=== PATIENT | male | born 1965 | race African-American/Black ===

== ENCOUNTER → 2022-01-02 09:41 | Outpatient (BNVA) | payer MEDICARE, MEDICAID, SELFPAY | PROVIDERS: PCP Internal Medicine; Visit Provider Nurse Practitioner Family | DX: G47.33 Obstructive sleep apnea (adult) (pediatric) (principal); F09 Unspecified mental disorder due to known physiological condition | CPT/HCPCS: Q3014 ==

== ENCOUNTER → 2022-07-06 13:35 | Outpatient (BNVA) | payer MEDICARE, MEDICAID, SELFPAY | PROVIDERS: PCP Internal Medicine; Visit Provider Nurse Practitioner Family | DX: G47.33 Obstructive sleep apnea (adult) (pediatric) (principal); E66.01 Morbid (severe) obesity due to excess calories; Z68.42 Body mass index [BMI] 45.0-49.9, adult | CPT/HCPCS: 99212 ==

== ENCOUNTER → 2023-04-06 14:00 | Outpatient (BNVA) | payer MEDICARE, MEDICAID, SELFPAY | PROVIDERS: PCP Internal Medicine; Visit Provider Nurse Practitioner Family | DX: G47.33 Obstructive sleep apnea (adult) (pediatric) (principal); R51.9 Headache, unspecified | CPT/HCPCS: 99212 ==

== ENCOUNTER 2023-04-22 19:00 | Outpatient (REF) | payer MEDICARE, MEDICAID, SELFPAY | END 2023-04-22 19:01 | disposition home or self-care (01) | LOC: HO.MRI 19:00 | PROVIDERS: PCP Internal Medicine; Visit Provider Nurse Practitioner Family | DX: Z13.89 Encounter for screening for other disorder (principal) ==

== ENCOUNTER 2023-07-19 14:07 | Outpatient (AMB) | payer MEDICARE, MEDICAID, SELFPAY ==
--- NOTE | 2023-07-19 14:08 | A.OFFVIS_ITS ---
Intake Intake Visit Reasons: f/u for MANUELITO Intake Note: Patient presents for follow up. I need to talk to her about an MRI I had that I couldn't proceed due to a panic attack and anxiety I I had, the lady stated she only took one picture Allergies ibuprofen Allergy (Verified 07/19/23 14:09) Hives ketorolac [From Toradol] Allergy (Verified 07/19/23 14:09) Hives Penicillins Allergy (Verified 07/19/23 14:09) Hives tramadol Allergy (Verified 07/19/23 14:09) Hives Medication List - Last Reconciled 07/19/23 by Danisha Abarca, ANTIONETTE amlodipine 5 mg PO DAILY aspirin 81 mg PO DAILY atorvastatin 20 mg PO DAILY fluoride (sodium) 1.1% PO hydrochlorothiazide 25 mg PO DAILY hydroxyzine HCl 25 mg PO TID PRN losartan 100 mg PO DAILY mupirocin 2% topical ofloxacin 0.3% 0 drps otic (ears) rimegepant (Nurtec ODT) 75 mg orally daily prn PRN; 30 days HPI HPI Comments History of Present Illness Details 58-yr-old male presents for f/u televisi t, as he is recovering from Covid-19. Pt endorses the following interval medical history changes: He was diagnosed w/ COVID-19 approx 10 days ago- mostly URI/sinus s/s. He has not had any recent headaches. He did tried to have the brain MRI- but had a panic attack so exam was aborted- very limited results although no large masses were noted. The Ubrelvy- denied, then ordered Nurtec ODT 75mg, but he did not try- he was worries about trying a newer medication. He plans to try to start losing weight- he plans to increase physical activity, reducing portion sizes, limiting carbohydrates. He is compliant w/ his CPAP device- finds he cannot sleep without it, especially since we decreased the PAP pressure form 16 to 15 cmH2O. His PAP compliance report shows CPAP 15 cmH2O, 100% overall usage and usage > 4 hrs, average use > 7 hrs, residual AHI 3.3/hr. PFSH Medical History High blood pressure High cholesterol Surgical History No history of previous surgery Family History Mother Diabetes Father Diabetes Maternal Grandmother Diabetes Brother Heart disease Social History Alcohol intake: current Alcohol intake frequency: a few times a month Patient Tobacco Use Status: Former Tobacco user Quit Date: 5 years Current occupational status: disabled Review of Systems Const All systems reviewed & are unremarkable except as noted in HPI and below Physical Exam Const General: cooperative and no acute distress Orientation/consciousness: patient oriented x3 Resp Effort & Inspection: normal respiratory effort and able to speak in complete sentences Neuro General: patient oriented x3 Cognition (Neuro): normal cognition Psych Appearance: grossly normal Mental Status: mental status grossly normal Speech and movement: Normal speech and movement present Affect: normal affect Attitude: cooperative Assessment & Plan Assessment & Plan (1) Obstructive sleep apnea: Comment: severe Code(s): G47.33 - Obstructive sleep apnea (adult) (pediatric) (2) Morbid obesity with body mass index (BMI) of 45.0 to 49.9 in adult: Code(s): E66.01 - Morbid (severe) obesity due to excess calories; Z68.42 - Body mass index [BMI] 45.0-49.9, adult (3) New onset headache: Comment: w/ migraine features Code(s): R51.9 - Headache, unspecified Plan Continue CPAP 15 cmH2O, as pt is experiencing good clinical effect from use. Use CPAP nightly > 4 hrs for best clinical effect. Concur w/ increasing physical activity and trying to eat healthier. For new onset headache- Improved. Incomplete brain MRI- reconsider repeating if headaches worsen. May hold Nurtec. May use Tylenol prn. Contraindications: NSAIDs- d/t allergy, Triptans d/t HTN and HLD. f/u in 6 months or sooner prn. Telehealth Telehealth Location of provider rendering services: practice address Location of patient: address on file Patient Identification confirmed using: Name, : Yes Telehealth method: video Patient verbally consented to treatment: Yes Patient verbally consented to billing insurance company: Yes Patient informed of any privacy concerns related to visit: Yes Minutes spent on Phone/Video with Pt.: 13 Coding Level of Care Code Tele Est Pt Level 4 (80988) Diagnoses Obstructive sleep apnea G47.33 Morbid obesity with body mass index (BMI) of 45.0 to 49.9 in adult E66.01; Z68.42 New onset headache R51.9
== END 2023-07-19 15:10 | disposition home or self-care (01) ==
LOC: HO.HSMS 14:07
PROVIDERS: PCP Internal Medicine; Visit Provider Nurse Practitioner Family
DX: G47.33 Obstructive sleep apnea (adult) (pediatric) (principal); E66.01 Morbid (severe) obesity due to excess calories; Z68.42 Body mass index [BMI] 45.0-49.9, adult; R51.9 Headache, unspecified
CPT/HCPCS: 99213

== ENCOUNTER → 2023-07-19 14:07 | Outpatient (BNVA) | payer MEDICARE, MEDICAID, SELFPAY | PROVIDERS: PCP Internal Medicine; Visit Provider Nurse Practitioner Family | DX: R51.9 Headache, unspecified (principal); E66.01 Morbid (severe) obesity due to excess calories; Z68.42 Body mass index [BMI] 45.0-49.9, adult ==

== ENCOUNTER 2024-01-17 11:48 | Outpatient (AMB) | payer MEDICARE, MEDICAID, SELFPAY ==
--- NOTE | 2024-01-17 11:49 | A.OFFVIS_ITS ---
Intake Intake Visit Reasons: 6m f/u MANUELITO- CONF Allergies ibuprofen Allergy (Verified 07/19/23 14:09) Hives ketorolac [From Toradol] Allergy (Verified 07/19/23 14:09) Hives Penicillins Allergy (Verified 07/19/23 14:09) Hives tramadol Allergy (Verified 07/19/23 14:09) Hives HPI HPI Comments History of Present Illness Details 59-yr-old male presents for f/u televide o [facility]. Pt denies any significant interval medical changes. Cardiology recently started him on Hydralazine for HTN tx. He has not been having any right retro-orbital headaches in a while . He thinks this was due to using increased CPAP pressure. He has been noticing STM lapses- word/name recall. He has stopped smoking- tobacco/marijuana use years ago. But after stopping s moking, he started eating more/gaining weight. His last HgA1C 7.4%. He plans to start Metformin. He started with tingling in his hand then all of a sudden this changed to his feet. Initially it was right foot burning/tingling, and over time it became kelly feet- but still more right sided than left. Sometimes the left foot can feel clean . Laying on his right side w/ head in certain position and sitting in certain chairs can trigger the burning in his feet. He had a L3-L4 laminectomy in 2000- was told he had other disc bulges. Has had Right sided sciatica, which improved post laminectomy but the right leg has since been more numb. He will be seeing Dr Espino.? He is doing well with CPAP, feels like he cannot sleep without. Compliance Report, 12/18/2023 - 01/16/2024 Usage days 30/30 days (100%) >= 4 hours Average usage (days used) 6 hours 50 minutes AirSense 11 AutoSet Serial number [id number] Mode CPAP Set pressure 15 cmH2O EPR Fulltime EPR level 3 Therapy Leaks Residual AHI: 2.3 PFSH Medical History High blood pressure High cholesterol Surgical History No history of previous surgery Family History Mother Diabetes Father Diabetes Maternal Grandmother Diabetes Brother Heart disease Social History Alcohol intake: current Alcohol intake frequency: a few times a month Patient Tobacco Use Status: Former Tobacco user Quit Date: 5 years Current occupational status: disabled Physical Exam Const General: cooperative and no acute distress Orientation/consciousness: patient oriented x3 Resp Effort & Inspection: normal respiratory effort and able to speak in complete sentences Neuro General: patient oriented x3 Cognition (Neuro): normal cognition Psych Appearance: grossly normal Mental Status: mental status grossly normal Speech and movement: Normal speech and movement present Affect: normal affect Attitude: cooperative Assessment & Plan Assessment & Plan (1) Obstructive sleep apnea: Comment: severe Code(s): G47.33 - Obstructive sleep apnea (adult) (pediatric) (2) New onset headache: Comment: w/ migraine features Code(s): R51.9 - Headache, unspecified (3) Morbid obesity with body mass index (BMI) of 45.0 to 49.9 in adult: Code(s): E66.01 - Morbid (severe) obesity due to excess calories; Z68.42 - Body mass index [BMI] 45.0-49.9, adult (4) Paresthesia of both lower extremities: Comment: Right > Left Code(s): R20.2 - Paresthesia of skin (5) H/O laminectomy: Code(s): Z98.890 - Other specified postprocedural states Plan For MANUELITO: Continue CPAP 15 cmH2O, as pt is experiencing good clinical effect from use. Use CPAP nightly > 4 hrs for best clinical effect. Concur w/ increasing physical activity and trying to eat healthier. ? For headache- Improved. May hold Nurtec. May use Tylenol prn. Previous brain MRI- incomplete d/t anxiety- reconsider repeating if headaches worsen. Contraindications: NSAIDs- d/t allergy, Triptans d/t HTN and HLD. For cognition: Increase physical activity. For BLE, R > L: Consult w/ Dr Espino as scheduled ? f/u in 6 months or sooner prn. Telehealth Telehealth Location of provider rendering services: practice address Location of patient: address on file Patient Identification confirmed using: Name, : Yes Telehealth method: video Patient verbally consented to treatment: Yes Patient verbally consented to billing insurance company: Yes Patient informed of any privacy concerns related to visit: Yes Minutes spent on Phone/Video with Pt.: 25 Coding Level of Care Code Tele Est Pt Level 4 (99039) Diagnoses Obstructive sleep apnea G47.33 New onset headache R51.9 Morbid obesity with body mass index (BMI) of 45.0 to 49.9 in adult E66.01; Z68.42 Paresthesia of both lower extremities R20.2 H/O laminectomy Z98.890
== END 2024-01-17 13:48 | disposition home or self-care (01) ==
LOC: HO.HSMS 11:48
PROVIDERS: PCP Internal Medicine; Visit Provider Nurse Practitioner Family
DX: G47.33 Obstructive sleep apnea (adult) (pediatric) (principal); R51.9 Headache, unspecified; E66.01 Morbid (severe) obesity due to excess calories; Z68.42 Body mass index [BMI] 45.0-49.9, adult; R20.2 Paresthesia of skin; Z98.890 Other specified postprocedural states
CPT/HCPCS: 99214

== ENCOUNTER → 2024-01-17 11:48 | Outpatient (BNVA) | payer MEDICARE, MEDICAID, SELFPAY | PROVIDERS: PCP Internal Medicine; Visit Provider Nurse Practitioner Family | DX: R51.9 Headache, unspecified (principal); E66.01 Morbid (severe) obesity due to excess calories; Z68.42 Body mass index [BMI] 45.0-49.9, adult; G47.33 Obstructive sleep apnea (adult) (pediatric) ==

== ENCOUNTER 2024-07-19 10:02 | Outpatient (AMB) | payer MEDICARE, MEDICAID, SELFPAY ==
--- NOTE | 2024-07-18 07:57 | MHC.OFFVIS ---
Vital Signs 07/19/24 10:24 Height 6 ft 2 in Weight 372 lb BMI 47.8 Intake Visit Reasons: 6 mnts f/u appt Intake Note: Patient presents for 6 month follow up. Allergies ibuprofen Allergy (Verified 07/19/24 10:24) Hives ketorolac [From Toradol] Allergy (Verified 07/19/24 10:24) Hives Penicillins Allergy (Verified 07/19/24 10:24) Hives tramadol Allergy (Verified 07/19/24 10:24) Hives HPI Comments Details: 59-yr-old male presents for f/u visit. Pt denies any significant interval medical changes. Pt reports that he did see neurology for BLE paresthesias- was told this is r/t diabetic neuropathy. He thinks it may be r/t his sciatica as well. Has been advised him to start metformin- he states he is thinking about it. He has strong family h/o diabetes w/ complications. He is considering seeing weight management. He is using his CPAP nightly with good effect. He states he cannot sleep w/o his machine. Sometimes the mask gets loose if his skin is oily. Does clean his machine/supplies. He is noticing a blue light flashing on his machine- Resmed Airview checked and shows that the machine is working well. He is curious about Inspire tx for MANUELITO. He has not had any headaches. 06/19/2024 - 07/18/2024 [place] [id number] Email: [email or web address] Compliance Report Usage 06/19/2024 - 07/18/2024 Usage days 30/30 days (100%) >= 4 hours 30 days (100%) < 4 hours 0 days (0%) Usage hours 203 hours 12 minutes Average usage (total days) 6 hours 46 minutes Average usage (days used) 6 hours 46 minutes Median usage (days used) 6 hours 56 minutes Total used hours (value since last reset - 07/18/2024) 4,176 hours AirSense 11 AutoSet Serial number [id number] Mode CPAP Set pressure 15 cmH2O EPR Fulltime EPR level 3 Therapy Leaks - L/min Median: 6.7 95th percentile: 30.7 Maximum: 58.0 Events per hour AI: 2.3 HI: 0.6 AHI: 2.9 PFSH Medical History (Updated 07/19/24 @ 13:13 by ANTIONETTE Spann) Diabetes High blood pressure High cholesterol Surgical History No history of previous surgery Family History Mother Diabetes Father Diabetes Maternal Grandmother Diabetes Brother Heart disease Social History Alcohol intake: current Alcohol intake frequency: a few times a month Patient Tobacco Use Status: Former Tobacco user Current occupational status: disabled Physical Exam Vital Signs: BMI result Body Mass Index 47.8 Const General: cooperative and no acute distress Orientation/consciousness: patient oriented x3 Resp Effort & Inspection: normal respiratory effort and able to speak in complete sentences Neuro General: patient oriented x3 Cranial nerves: Yes CN's II-XII intact bilaterally Cognition (Neuro): normal cognition Psych Appearance: grossly normal Mental Status: mental status grossly normal Speech and movement: Normal speech and movement present Affect: normal affect Attitude: cooperative Assessment & Plan Assessment & Plan (1) Obstructive sleep apnea: Comment: severe Code(s): G47.33 - Obstructive sleep apnea (adult) (pediatric) Category: Medical (2) Morbid obesity with body mass index (BMI) of 45.0 to 49.9 in adult: Code(s): E66.01 - Morbid (severe) obesity due to excess calories; Z68.42 - Body mass index [BMI] 45.0-49.9, adult Category: Medical (3) New onset headache: Comment: w/ migraine features Code(s): R51.9 - Headache, unspecified Category: Medical Plan For MANUELIOT: Continue CPAP 15 cmH2O, as pt is experiencing good clinical effect from use. Use CPAP nightly > 4 hrs for best clinical effect. Pt would not be a candidate for Inspire as his BMI is > 45. Concur w/ increasing physical activit, trying to eat healthier, and wt management referral. Encouraged pt to try Metformin as ordered by PCP. ? For headache- Improved. May hold Nurtec. May use Tzylenol prn. Previous brain MRI- incomplete d/t anxiety- reconsider repeating if headaches worsen. Contraindications: NSAIDs- d/t allergy, Triptans d/t HTN and HLD. ? For cognition: Increase physical activity. ? For BLE, R > L paresthesias: f/u w/ Dr Espino as scheduled ? f/u in 6 months or sooner prn. Coding Level of Care Code Est Pt Level 4 (03124) Diagnoses Obstructive sleep apnea G47.33 Morbid obesity with body mass index (BMI) of 45.0 to 49.9 in adult E66.01; Z68.42 New onset headache R51.9
[2024-07-19 10:24] VITALS: BMI 47.8
== END 2024-07-19 11:17 | disposition home or self-care (01) ==
PROVIDERS: PCP Internal Medicine; Visit Provider Nurse Practitioner Family
DX: G47.33 Obstructive sleep apnea (adult) (pediatric) (principal); E66.01 Morbid (severe) obesity due to excess calories; Z68.42 Body mass index [BMI] 45.0-49.9, adult; R51.9 Headache, unspecified
CPT/HCPCS: 99214

== ENCOUNTER → 2024-07-19 10:02 | Outpatient (BNVA) | payer MEDICARE, MEDICAID, SELFPAY | PROVIDERS: PCP Internal Medicine; Visit Provider Nurse Practitioner Family | DX: G47.33 Obstructive sleep apnea (adult) (pediatric) (principal); R51.9 Headache, unspecified; E66.01 Morbid (severe) obesity due to excess calories; Z68.42 Body mass index [BMI] 45.0-49.9, adult | CPT/HCPCS: 99212 ==

== ENCOUNTER 2024-12-08 08:29 | Outpatient (AMB) | payer OTHER, MEDICARE, SELFPAY ==
--- NOTE | 2024-12-08 08:30 | MHC.OFFVIS ---
Intake Visit Reasons: Follow up Intake Note: Patient presents for follow up Allergies ibuprofen Allergy (Verified 12/08/24 08:30) Hives ketorolac [From Toradol] Allergy (Verified 12/08/24 08:30) Hives Penicillins Allergy (Verified 12/08/24 08:30) Hives tramadol Allergy (Verified 12/08/24 08:30) Hives HPI Comments Details: 59-yr-old male presents for f/u televideo visit for obstructive sleep apnea Pt states he started on Trulicity, and has lost 8 lb. He continues to use his CPAP nightly with overall good effect. However, more recently his water reservoir is drying out during the night which is causing him to not breathe well and thus wakes him up He has tried adjusting his CPAP humidification settings for instance he turned off heated tubing, but this resulted in significant the water condensation inside the to which was intolerable. He is wondering if there are any devices that can replenish the water reservoir throughout the night. On review of his PAP compliance data, he has residual AHI has increased slightly from 2.9/hour to 6.4/hour. He has not had any headaches. 06/19/2024 - 07/18/2024 [place] [id number] Email: [email or web address] Compliance Report Usage 11/08/2024 - 12/07/2024 Usage days 30/30 days (100%) >= 4 hours 30 days (100%) < 4 hours 0 days (0%) Average usage (days used) 7 hours 10 minutes AirSense 11 AutoSet Serial number [id number] Mode CPAP Set pressure 15 cmH2O EPR Fulltime EPR level 3 Therapy: Leaks - L/min Median: 4.0 95th percentile: 34.8 Maximum: 61.5 Events per hour AI: 4.6 HI: 1.8 AHI: 6.4 PFSH Medical History Diabetes High blood pressure High cholesterol Surgical History No history of previous surgery Family History Mother Diabetes Father Diabetes Maternal Grandmother Diabetes Brother Heart disease Social History Alcohol intake: current Alcohol intake frequency: a few times a month Patient Tobacco Use Status: Former Tobacco user Current occupational status: disabled Physical Exam Const General: cooperative and no acute distress Orientation/consciousness: patient oriented x3 Resp Effort & Inspection: normal respiratory effort and able to speak in complete sentences Neuro General: patient oriented x3 Cognition (Neuro): normal cognition Psych Appearance: grossly normal Mental Status: mental status grossly normal Speech and movement: Normal speech and movement present Affect: normal affect Attitude: cooperative Telehealth Telehealth Telehealth Platform: [employer]Peerient Location of provider rendering services: practice address Location of patient: address on file Patient Identification confirmed using: Name, : Yes Telehealth method: video Patient verbally consented to treatment: Yes Patient verbally consented to billing insurance company: Yes Patient informed of any privacy concerns related to visit: Yes Minutes spent on Phone/Video with Pt.: 25 Assessment & Plan Assessment & Plan (1) Obstructive sleep apnea: Comment: severe Code(s): G47.33 - Obstructive sleep apnea (adult) (pediatric) Category: Medical (2) Morbid obesity with body mass index (BMI) of 45.0 to 49.9 in adult: Code(s): E66.01 - Morbid (severe) obesity due to excess calories; Z68.42 - Body mass index [BMI] 45.0-49.9, adult Category: Medical (3) New onset headache: Comment: w/ migraine features- improved Code(s): R51.9 - Headache, unspecified Category: Medical Plan For MANUELITO: Continue CPAP 15 cmH2O w/ EPR 3, as pt is experiencing overall good clinical effect from use. Use CPAP nightly > 4 hrs for best clinical effect. Adjusted CPAP humidification settings from auto to manual with humidifier level 4 and tube temperature 66 degrees- in hopes this prevents water reservoir from drying out, which patient is not tolerating. Will request a water chamber refilling system be added to patient's current CPAP device to minimize risk for water reservoir drying out which is negatively affecting patient's sleep quality and residual AHI: CSpring MK3 Automatic CPAP Water Chamber Refilling System For headache- Improved. May hold Nurtec. May use Tylenol prn. Previous brain MRI- incomplete d/t anxiety- reconsider repeating if headaches worsen. Contraindications: NSAIDs- d/t allergy, Triptans d/t HTN and HLD. ? For cognition: Continue to optimize cardiovascular risk factors, such as optimizing his diabetes control, diet, and physical activity. ? For BLE, R > L paresthesias: f/u w/ Dr Espino as scheduled ? f/u in 6 months or sooner prn. Coding Level of Care Code Tele Est Pt Level 4 (88160) Diagnoses Obstructive sleep apnea G47.33 Morbid obesity with body mass index (BMI) of 45.0 to 49.9 in adult E66.01; Z68.42 New onset headache R51.9
--- OUTSIDE RECORDS SUMMARY | 2024-12-08 08:37 | XMS_ITS | Encounter Summary ---
Author Organization [facility] Address [address] [place] [address] Care Team Providers Care Clinical Laboratory Assistant Name Role Phone Juan Rogers MD Primary Care Provider [phone] Reason for Referral * Consultation (Routine) - Authorized Specialty Diagnoses / Procedures Referred By Contac t Referred To Contact Gastroenterology Diagnoses Constipation, unspecified constipation type Juan Rogers MD [address] [place] [id number] [facility] Gastroenterology [address] [address] Referral ID Status Reason Start Date Expiration Date Visits Requested Visits Authorized [id number] Authorized Specialty Services Required 4 10/24/2025 1 1 Reason for Visit * Reason Onset Date Comments constipation 10/10/2024 Encounter Details Date Type Department Care Team ([facility] st Contact Info) Description 10/10/2024 Telephone Adult Medicine [facility] [address] [place] [phone] Sandra Patel, PharmD [address] [place], [place] constipation Social History Tobacco Use Types Packs/Day Years Used Date Smoking Tobacco: Former Cigarettes Q uit: 03/18/2020 Smokeless Tobacco: Never Alcohol Use Standard Drinks/Week Comments Yes 0 (1 standard drink = 0.6 oz pur e alcohol) Sex and Gender Information Value Date Recorded Sex Assigned at Not on file Gender Identity Not on file Sexual Orientation Not on file Job Start Date Occupation Industry Not on file Not on file Not on file documented as of this encounter Ordered Prescriptions Prescription Sig Dispensed Refills Start Date End Da te amLODIPine (NORVASC) 5 mg tablet Take 1 tablet (5 mg total) by mouth 1 (one) time each day. at bedtime. 30 tablet 1 10/24/2024 documented in this encounter Progress Notes * Sena Clayton MA - 10/24/2024 3:12 PM EST Pt notified * Juan Rogers MD - 10/24/2024 3:04 PM EST Referral to GI placed * Lisbeth Reyez LPN - 10/24/2024 1:44 PM EST Spoke with pt he states he is taking his pericolace 2x daily but it's not working. Pt states he bought the Citrate of Mag and had a blow out on Wednesday. Pt states he didn't take his aby colace for the last 2 days d/t the blow out and now he is constipated again and wants something stronger. Advised him to use miralax but he refused and states I don't understand. Advised pt to take pericolace daily even if he had a BM, but he states he needs something stronger prescribed for him. Please advise Thank you * Sandra Patel PharmD - 10/24/2024 9:27 AM EST Hi Triage and Dr. Rogers, Patient is still complaining of constipation. Please advise. Thank you, Sandra * Sandra Patel PharmD - 10/10/2024 2:[address] Rogers, Patient is still complaining of constipation. He only had 1 good bowel movement since he saw you which was 2 days ago. He is taking the senna-docusate as prescribed. Would you like him to increase that? If so he would need a new script. Thanks Sandra documented in this encounter Plan of Treatment Upcoming Encounters Date Type Department Care Team (Late st Contact Info) Description 12/12/2024 2:00 PM EST Medication Management Adult Medicine [facility] [address] [place] [phone] Sandra Patel PharmD [address] [place] [address] 12/19/2024 1:20 PM EST Consult Gastroenterology - [place] [address] [facility] [address] [phone] Deisy Haas NP [address] [phone] Scheduled Referrals Name Type Priority Associated Diagnoses Order Schedule Ambulatory referral to Gastroenterology Outpatient Referral Routine Constipation, unspecified constipation type 1 Occurrences starting 10/24/2024 until 10/24/2025 documented as of this encounter Visit Diagnoses Diagnosis Constipation, unspecified constipation type- Primary documented in this encounter Discontinued Medications Medication Sig Discontinue Reason Start Date End Da te amLODIPine (NORVASC) 5 mg tablet Take 1 Tablet by mouth at bedtime. Reorder 03/08/2024 10/24/2024 documented as of this encounter Care Teams Clinical Laboratory Assistant Relationship Specialty Start Date End Date Juan Rogers MD [address] [place] [id number] PCP - General Internal Medicine 09/12/24 documented as of this encounter
--- OUTSIDE RECORDS SUMMARY | 2024-12-08 08:37 | XMS_ITS | Data Portability ---
Author Organization [place] - [facility], Allergy Address [address] [place] [id number] Assessment Encounter Date Assessment Date Assessment LastModified by Organization Details LastModified Time 06/13/2024 06/13/2024 59-year-old male presents for evaluation of tinnitus. Otologic exam reveals cerumen impaction bilaterally which was cleared without difficulty. TMs normal to inspection. Audiometric testing was obtained today. Results show normal hearing and tympanometry bilaterally. Follow-up in 6 months for cerumen removal. [email or web address] Not available 06/13/2024 12:49:33 Plan of Treatment Reminders Order Date Submit Date Provider Last Modified By Organization Details Last Modified Time Details Appointments Establish ed 15 2024 01:30P M SERINA GRAYSON PA-C Not available Not available Not available Lab None recorded. Referral None recorded. Procedures None recorded. Surgeries None recorded. Imaging None recorded. Medication Orders None recorded. Patient TargetsNo targets recorded. Patient InstructionsNo instructions recorded. Reason for Referral None Reported. Results Created Date Observation Date Name Description Value Unit Range Abnormal Flag Note LastModifiedBy Organization Detail LastModifiedTime 06/13/20 24 audio gram No observ ation record ed. [email or web address] Not Available 04/2024 16:14:47 Result Notes None recorded. Problems Name Problem SNOMED Code Status Onset Date Resolution Date Notes Provider Name and Address Organization Details Recorded Time Snoring 92677202 Active 2017 Snoring; Note: Date Diagnosed : 8 10:45 AM (R06.83) Not Available [facility] 03:00:20 Obstructi ve sleep apnea syndrome 46073481 Active 2017 Obstructi ve sleep apnea (adult) (pediatri c); Note: Date Diagnosed : 8 10:46 AM (G47.33) Not Available [facility] 4 03:00:21 Impacted cerumen of bilateral ears 29314291705 11964 Active 2017 Impacted cerumen, bilateral ; Note: Date Diagnosed : 8 10:33 AM (H61.23) Not Available [facility] 4 03:00:21 Abnormal auditory perceptio n 60640539 Active 2017 Other abnormal auditory perceptio ns, bilateral ; Note: Date Diagnosed : 8 11:00 AM (H93.293) Not Available [facility] 4 03:00:20 Bilateral tinnitus 39339589262 02 Active 2023 SERINA GRAYSON PA-C [address] [place] [address],[place] [address], [place], [phone] , [facility] - [facility] 4 12:49:46 Problem Notes None recorded. Procedures Surgical History Date Name Laterality Status Provider Name and Address Organization Details Recorded Time 06/13/20 24 Air & Speech Audio with Tymps (52227, 73656 & 22852) completed MENDEZ YOU MA, CCC-A [address] [facility],[place] [address], [place], [address], [facility] - [facility] [place] 06/13/2024 12:40:25 06/13/20 24 Cerumen removal without microscope bilat completed SERINA GRAYSON PA-C [address] [place] [address],[place] [address], [place], [address], [facility] - [facility] [place] 06/13/2024 12:19:27 laminectomy completed Serina Ch [place] - [facility] 06/13/2024 11:50:38 colonoscopy completed Serina Ch [place] - [facility] [place] 06/13/2024 11:53:07 Imaging Results Imaging Date Name Status LastModified by Organiz ation Details LastModified Time 06/13/2024 audiogram completed Information n ot available 06/13/2024 16:14:47 Procedure Notes None recorded. Medical Equipment None Reported. Allergies Allergen ID Allergen Name Allergen Category Reaction Reaction Severity Criticality Documentation Date Start Date Code Code System Note Provider Name and Address Organization Details Recorded Time 526192 ibuprofen medicatio n other Not available Not available 03/21/2024 5640 RxNorm React ion: unkno wn, unspe cifie d;; Not Available [facility] 4 01:14:11 953864 tramadol Not available other Not available Not available 03/21/2024 16315 RxNorm React ion: unkno wn, unspe cifie d;; Not Available [facility] 4 01:14:12 589447 penicilli n V potassium medicatio n other Not available Not available 03/21/2024 68222 5 RxNorm React ion: unkno wn, unspe cifie d;; Not Available [facility] 4 01:14:13 Medications Name Sig Start Date Stop Date Status Note LastModified by Organization Details LastModified Time metformin 500 mg tablet TAKE 1 TABLET BY MOUTH TWICE DAILY WITH MEALS active Not Available Not Available No t Available atorvastat in 20 mg tablet TAKE 1 TABLET BY MOUTH DAILY active Not Available Not Available No t Available atorvastat in 10 mg tablet 2017 active Medicatio n ID: [id number] Du ration Value: 90 Brand Name: atorvasta tin Send Method: E-Prescri bed Subs Allowed: subs OK Specia l Instructi on: TK 1 T PO D Medicat ionGeneri cName: atorvasta tin Not Available Not Available Not Available Claritin 10 mg tablet Take 1 tablet by mouth once a day 2017 active Medicatio n ID: [id number] Du ration Value: 30 Prescrib ed By Name: Gianni Coyle Name: Claritin Send Method: E-Prescri bed Subs Allowed: subs OK Medica tionGener icName: Claritin Not Available Not Available Not Available FreeStyle Lancets 28 gauge TEST BLOOD GLUCOSE EVERY DAY active Not Available Not Available No t Available clindamyci n HCl 150 mg capsule TAKE 3 CAPSULES BY MOUTH THREE TIMES DAILY FOR 7 DAYS active Not Available Not Available No t Available amlodipine 5 mg tablet TAKE 1 TABLET BY MOUTH AT BEDTIME active Not Available Not Available No t Available aspirin 81 mg tablet,del ayed release TAKE 1 TABLET BY MOUTH DAILY active Not Available Not Available No t Available hydrocorti sone 2.5 % topical cream with perineal applicator APPLY FILM TOPICALLY TO THE AFFECTED AREA TWICE DAILY active Not Available Not Available No t Available lorazepam 2 mg tablet TAKE 1 TABLET BY MOUTH 2 HOURS BEFORE MRI. MAY REPEAT 30 MINUTES BEFORE IF NEEDED active Not Available Not Available No t Available amlodipine 10 mg tablet 2017 active Medicatio n ID: [id number] Du ration Value: 30 Brand Name: amlodipin e Send Method: E-Prescri bed Subs Allowed: subs OK Specia l Instructi on: TK 1 T PO D Medicat ionGeneri cName: amlodipin e Not Available Not Available Not Available hydralazin e 50 mg tablet TAKE 1 TABLET BY MOUTH THREE TIMES DAILY active Not Available Not Available No t Available mupirocin 2 % topical ointment APPLY TO NOSTRILS TWICE DAILY X1 WEEK THEN APPLY EVERY DAY FOR 2-3 WEEKS active Not Available Not Available No t Available gabapentin 100 mg capsule TAKE 1 CAPSULE BY MOUTH EVERY NIGHT active Not Available Not Available No t Available losartan 100 mg tablet TAKE 1 TABLET BY MOUTH DAILY active Not Available Not Available No t Available hydrochlor othiazide 12.5 mg tablet TAKE 2 TABLETS BY MOUTH DAILY active Not Available Not Available No t Available FreeStyle Lite Meter kit TEST BLOOD GLUCOSE EVERY DAY active Not Available Not Available No t Available FreeStyle Lite Strips USE 1 STRIP TO TEST FOUR TIMES DAILY active Not Available Not Available No t Available Flonase Allergy Relief 50 mcg/actuat ion nasal spray,susp ension 1 puff into both nostrils once a day 2017 active Medicatio n ID: [id number] Du ration Value: 30 Prescrib ed By Name: Gianni Coyle Name: Flonase Allergy Relief Se nd Method: E-Prescri bed Subs Allowed: subs OK Medica tionGener icName: Flonase Allergy Relief Not Available Not Available Not Available GenTeal Tears Moderate 0.1 %-0.3 %-0.2 % eye drops active Not Available Not Available No t Available Vitals Date Recorded Body height Body mass index (BMI) Body weight Provider Name and Address Organization Details Last Updated DateTime 06/13/2024 187.96 cm 47.8 kg/m2 626959.36 g Serina Ch [place] - [facility] 06/13/2024 12:05:24 Social History Question Answer Notes LastModified by Organizat ion Details LastModified Time Tobacco Smoking Status Never Smoker Serina ford [place] - [facility] 06/13/2024 11:52:33 What Is Your Level Of Alcohol Consumption? None Information not available 06/13/2024 Sex: Unknown Functional Status None recorded. Mental Status None recorded. Family History Nothing Reported. Medical History Condition Response Diabetes Y Heart Problems Y Anxiety Y Hypertension Y Depression Y Past Encounters Encounter ID Performer Location Encounter Start Date Encounter Closed Date Diagnosis/Indication Diagnosis SNOMED-CT Code Diagnosis ICD10 Code Diagnosis Note [id number] LENORA JEWELL-[facility] [address] [address] 06/13/2024 11:15:43 06/13/2024 12:47:29 Abnormal auditory perception 82828189 H93.293 Impacted c erumen of bilateral ears 6411613693 169604 H61.23 Bilateral tinnitus 94975 22093 102 H93.13 [id number] MENDEZ YOU MA, CCC-A [facility] [address] [address] 06/13/2024 12:39:56 06/14/2024 07:47:23 Abnormal auditory perception 55263644 H93.293 Audiologic al evaluation results: Right ear: {{Normal* Normal through 2 kHz Mild M oderate Mo derately-s evere Brittany re Profoun d}} {{hearing* sloping to a mild slopi ng to a moderate s loping to moderately severe slo ping to severe slo ping to profound f lat high frequency low frequency mid frequency cookie bite fraire curve}} {{with* se nsorineura l hearing loss with condu ctive hearing loss with mixed hearing loss with}} {{excellen t* good fa ir poor no measurable }} word recognitio n. Left ear: {{Normal* Normal through 2 kHz Mild M oderate Mo derately-s evere Brittany re Profoun d}} {{hearing* sloping to a mild slopi ng to a moderate s loping to moderately severe slo ping to severe slo ping to profound f lat high frequency low frequency mid frequency cookie bite fraire curve}} {{with* se nsorineura l hearing loss with condu ctive hearing loss with mixed hearing loss with}} {{excellen t* good fa ir poor no measurable }} word recognitio n. Tympanomet ry: Right Ear:{{Type A Type As Type Ad* Type C Type C, shallow & rounded Ty pe B Type B with large volume Cou ld not maintain a hermetic seal}} Left Ear:{{Type A Type As Type Ad* Type C Type C, shallow & rounded Ty pe B Type B with large volume Cou ld not maintain a hermetic seal}} Health Concerns Section Related Observation LastModified by Organization Detai ls LastModified Time None Recorded Concern Status LastModified by Organization Details LastModified Time None Recorded Advance Directives Directive None Recorded Payers Encounter Date Sequence Insurance Name Policy Number Policy Pantoja Covered Member ID Pantoja Member ID Guarantor Name 06/13/2024 1 [place] [employer] Wallace D Seal [id number] Wallace Seal 06/13/2024 2 [place] Wallace D Seal [id number] Wallace Seal 06/13/2024 1 [place] Wallace D Seal [id number] Wallace Seal 06/13/2024 2 [place] Wallace D Seal [id number] Wallace Seal Notes Date Note Type Note Provider Name and Address Organization Details Recorded Time 06/13/2024 text/html 59-year-old male presents for evaluation of tinnitus. Initially he was having bilateral tinnitus which has since resolved. He believes it was related to cerumen impaction. Feels his hearing is normal. Does not report vertigo. SERINA GRAYSON PA-C [address] [place] [address], [place], [address], [facility] - [facility] 06/13/2024 12:50:45
--- OUTSIDE RECORDS SUMMARY | 2024-12-08 08:38 | XMS_ITS | Clinical Summary ---
Author Organization [facility] Address [address] [place] [address] Care Team Providers Care Card Mounter Name Role Phone Tiffanie Logan DMD Primary Care Provider [phone] Source Comments PLEASE NOTE, if this patient is a minor, it may be UNLAWFUL to discuss sensitive information that is contained in these records (such as FAMILY PLANNING, MENTAL HEALTH or SUBSTANCE ABUSE) with the minor patient's parent or other person without the patient's specific authorization.[facility] Social History Tobacco Use Types Packs/Day Years Used Date Smoking Tobacco: Never Assessed Social Connections Answer Date Recorded Social Connections and Isolation 0 03/18/2021 Financial Resource Strain Answer Date R ecorded Financial Resource Strain 0 2020 Stress Answer Date Recorded Stress 0 03/18/2021 Physical Activity Answer Date Recorded Physical Activity 0 03/18/2021 Food Insecurity Answer Date Recorded Food 0 03/18/2021 Transportation Needs Answer Date Record ed Transportation 0 03/18/2021 Housing Stability Answer Date Recorded Housing 0 03/18/2021 Safety and Environment Answer Date John rded Safety 0 03/18/2021 Utilities Answer Date Recorded Utilities 0 03/18/2021 Employment Answer Date Recorded Employment 0 03/18/2021 Sex and Gender Information Value Date Recorded Sex Assigned at Not on file Legal Sex Male 12:41 PM PDT Gender Identity Not on file Sexual Orientation Not on file Plan of Treatment Not on file Insurance [employer]AF[employer] [place] Care Teams Card Mounter Relationship Specialty Start Date End Date Tiffanie Logan DMD [address] [place] [address] PCP - General 01/17/21
--- OUTSIDE RECORDS SUMMARY | 2024-12-08 08:38 | XMS_ITS | Clinical Summary ---
Author Organization [facility] [address] [facility] Building Address [address] [place] [phone] Phone Care Team Providers Care Collar Baster Jumpbasting Name Role Phone Juan Rogers MD Primary Care Provider [phone] Allergies Active Allergy Reactions Criticality Noted Date Comments Ibuprofen 06/02/2013 Aspartame-Fd&C Yellow #6-Ibuprofen: Other Reaction(s): Hives/Urticaria Ketorolac 02/27/2010 Other Reaction(s): Hives/Urticaria Penicillin G Potassium 12/09/2005 Tramadol 10/01/2014 rash Medications Medication Sig Dispensed Refills Start Date End Date Status atorvastatin (LIPITOR) 20 mg tablet Take 1 Tablet by mouth daily. 10/27/2023 Active blood glucose control high,low (FreeStyle Control) solution 1 Each by In Vitro route daily. 03/08/2024 Active clotrimazole-beta methasone (LOTRISONE) 1-0.05 % cream Apply to affected area twice a day 08/11/2022 Active blood-glucose meter kit Use to check blood sugar daily 03/08/2024 03/03/2025 Active peg 400-hypromellose- glycerin (Dry Eye Relief) 1-0.2-0.2 % drops apply 1 Drop to the eye at bedtime as needed (dry eyes). 03/09/2024 Active hydrALAZINE (APRESOLINE) 50 mg tablet Take 1 Tablet by mouth 3 times daily. 10/27/2023 Active hydroCHLOROthiazi de 12.5 mg tablet Take 2 Tablets by mouth daily. 06/12/2024 Active hydrocortisone (ANUSOL-HC) 2.5 % rectal cream Apply 1 Film topically 2 times daily. 04/04/2024 Active losartan (COZAAR) 100 mg tablet TAKE 1 TABLET BY MOUTH DAILY 05/01/2024 Active mupirocin (BACTROBAN) 2 % ointment Apply topically 2 (two) times a day. For 7 days then once daily for 2-3 weeks 22 g 09/14/2024 Active aspirin 81 mg EC tablet Take 1 tablet (81 mg total) by mouth 1 (one) time each day. 90 tablet 1 09/14/2024 Active hydrOXYzine HCL (ATARAX) 25 mg tablet Take 1 tablet (25 mg total) by mouth 3 (three) times a day if needed for anxiety. for anxiety 90 tablet 1 09/21/2024 Active fluticasone propionate (FLONASE) 50 mcg/actuation nasal spray SHAKE WELL AND INSTILL 2 SPRAYS INTO EACH NOSTRIL EVERY DAY 48 g 09/22/2024 Active blood sugar diagnostic (FreeStyle Lite Strips) test stripIndications: New onset type 2 diabetes mellitus (CMS/HCC) Use to test blood sugar once daily dxe11.9 100 each 3 10/10/2024 Active freestyle (FreeStyle Lancets) 28 gauge lancets Use to test blood sugar once daily dxe11.9 100 each 3 10/10/2024 Active amLODIPine (NORVASC) 5 mg tablet Take 1 tablet (5 mg total) by mouth 1 (one) time each day. at bedtime. 30 tablet 1 10/24/2024 Active dulaglutide (Trulicity) 1.5 mg/0.5 mL pen injector injectionIndicati ons:New onset type 2 diabetes mellitus (CMS/HCC) Inject 0.5 mL (1.5 mg total) under the skin every 7 (seven) days. 2 mL 1 11/09/2024 Active senna-docusate (PERICOLACE) 8.6-50 mg per tablet Take 1 tablet by mouth 1 (one) time each day. 90 each 1 12/07/2024 Active senna-docusate (PERICOLACE) 8.6-50 mg per tablet Take 1 tablet by mouth 1 (one) time each day. 30 each 2 10/03/2024 12/06/2024 Discontinued (Reorder) dulaglutide (Trulicity) 1.5 mg/0.5 mL pen injector injectionIndicati ons:New onset type 2 diabetes mellitus (CMS/HCC) Inject 0.5 mL (1.5 mg total) under the skin every 7 (seven) days. 2 mL 1 10/10/2024 11/09/2024 Discontinued (Reorder) Active Problems Problem Noted Date Diagnosed Date Lumbar herniated disc 01/10/2024 Rectal bleeding 01/26/2023 Chest pain 01/26/2023 Assessment & Plan (10/27/2024 2:17 PM EST): Orders: ECG 12 lead Coronary artery disease 08/29/2021 Overview (08/28/2024): Last Assessment & Plan: Patient has history of NSTEMI in 2016. Coronary angiogram during that time showed mild nonobstructive coronary disease with possibility of coronary spasm. He denies any recurrent exertional symptoms. He should continue with aspirin and statin as prescribed. Assessment & Plan (10/27/2024 5:48 PM EST): Patient with a possible history of nonobstructive coronary disease with vasospasm though not necessarily proven. Small enzyme leak in the past. Patient's risk factors are being aggressively managed. Patient continues with aspirin and statin therapy as prescribed has had no symptoms sagittally trying to lose weight and mechanisms to control his other risk factors. At this point no recommended changes to medical therapy Mixed hyperlipidemia 10/12/2019 Overview (08/28/2024): Last Assessment & Plan: Patient has last LDL was 67. Is at goal. Continue with statin as prescribed. Patient encouraged to continue with dietary and lifestyle modifications. Obstructive sleep apnea 11/14/2018 Overview (08/28/2024): [facility]BMG Polysomnogram: Date 11/06/2018; Wt 302# SE 36%; SM 57%; REM 24%; RDI 52 (AHI 52), REM (RDI 75 - AHI 75), Central apneas 13; Obstructive apneas 37; Mixed apneas 0; hypopneas 8; RERAs 0; average oxygen saturation 93% (lowest 82% - without saturations <88% for 5% or more of study); PLMs 0. SMS Split Night Study. 03/19/2022. Weight 350; BMI 45. AHI 55. Obstructive apneas 31; Mixed apneas 5; Hypopneas 49. Average oxygen saturation 94% with oxygen jessica 80%. CPAP recommended at 16. - Obstructive Sleep Apnea - severe; mostly Obstructive apneas with frequent central apneas; without sleep related hypoventilation by 2018 polysomnogram. New onset type 2 diabetes mellitus 02/16/2018 Overview (08/28/2024): A1c 6.1 on 02/16/18 Anxiety and depression 04/26/2017 Overview (08/28/2024): Last Assessment & Plan: We once again discussed his stress and anxiety. Patient may be self-medicating with alcohol. He has not discussed this with his primary care provider and was encouraged to follow-up with his PCP for consideration of possible medical therapy if necessary. Patient was also encouraged to seek out a therapist/counselor to assist him with his grief process. Patient understands that he is his greatest barrier to his health at this point considering he is not following a heart healthy diet or exercising regularly. He understands that he should be doing these things however due to his depression he is unable to move forward with these recommendations time and time again. NSTEMI (non-ST elevated myocardial infarction) 0 2016 Overview (08/28/2024): Negative cath 12/2015 Dr. Butler, PVC Assessment & Plan (10/27/2024 2:17 PM EST): Orders: ECG 12 lead Marijuana use 10/01/2014 Adrenal adenoma 01/30/2010 Primary hypertension 12/09/2005 Overview (08/28/2024): Last Assessment & Plan: Patient's blood pressure is well-controlled today with a reading of 134/72. We reviewed his medical therapies. He states that he does not always take his third dose of hydralazine however he was encouraged to do so. He will continue with hydrochlorothiazide, hydralazine, amlodipine and losartan as prescribed. Patient encouraged to continue with diet and exercise and efforts to lose weight. If his blood pressure decreases we will be able to cut back on his medications. Backache 12/09/2005 Overview (08/28/2024): s/p laminectomy 08/13: Minor L3-4 degenerative disc disease, stable since 2000. Small central disc herniation without associated nerve root impingement, also stable since 2000. Postoperative changes at L5-S1 with epidural scarring about the right S1 nerve root, less conspicuous since 2000. No evidence of recurrent disc herniation or postoperative complications. IMO update Encounters Date Type Department Care Team Description 10/27/2024 1:30 PM EST Office Visit [facility] [address] [place] [address] Robert Hunt MD Chest pain, unspecified type (Primary Dx); NSTEMI (non-ST elevated myocardial infarction) (CMS/HCC); Coronary artery disease involving burns paiute coronary artery of burns paiute heart without angina pectoris 10/27/2024 [facility] [address] [place] [address] Juan Rogers MD Faxed Order ([facility] ) 10/13/2024 [facility] [address] [place] [address] Juan Rogers MD 10/10/2024 Telephone Adult Medicine [address] [phone] Sandra Patel, PharmD constipation 10/06/2024 Telephone [facility] [address] [place] [address] Juan Rogers MD prior authorization 10/03/2024 8:15 AM EST [facility] [address] [place] [address] Juan Rogers MD New onset type 2 diabetes mellitus (CMS/HCC) (Primary Dx); Primary hypertension; Mixed hyperlipidemia 10/03/2024 [facility] [address] [place] [phone] Juan Rogers MD Prior auth (Ozempic 0.25 or 0.50Mg DOS (2MG/3ML) 09/21/2024 [facility]phone [facility] [address] [place] [phone] Juan Rogers MD Medication Problem from Last 3 Months Immunizations Name Administration Dates Next Due Hepatitis B (Adozfxb-M-Zygbu , Recombivax HB-Adult) 19yo and older 03/26/2021,11/22/2020,10/23/2020 Td Tetanus diptheria (Tdvax) 7yo and older 04/18 Tdap Tetanus diptheria acell ular pertussis (Boostrix; Adacel) 7yo and older 04/02/2009 Surgical History Surgery Date Site/Laterality Comments COLONOSCOPY 12/20/2017 PROCEDURE: HISTORICAL COLONOSCOPY; COMMENT: Negative screening examination LUMBAR LAMINECTOMY 06/10/2001 PROCEDURE: HISTORICAL LUMB LAMINECTOMY Medical History Medical History Date Comments Heart disease DX:Heart disease Essential hypertension 12/09/2005 DX:Essent ial hypertension Anxiety and depression 04/26/2017 DX:Anxiet y and depression New onset type 2 diabetes me llitus (CMS/HCC) DX:New onset type 2 diabetes mellitus (HCC) NSTEMI (non-ST elevated myoc ardial infarction) ([facility]) 2016 DX:NSTEMI (non-ST elevated m yocardial infarction) ([facility]); COMMENT: Negative cath 12/2015 Dr. Butler, PVC Coronary artery disease 08/29/2021 DX:Coron dinesh artery disease Mixed hyperlipidemia 10/12/2019 DX:Mixed hy perlipidemia Obstructive sleep apnea 11/14/2018 DX:Obstr uctive sleep apnea; COMMENT: RBMG Polysomnogram: Date 11/06/2018; Wt 302# SE 36%; SM 57%; REM 24%; RDI 52 (AHI 52), REM (RDI 75 - AHI 75), Central apneas 13; Obstructive apneas 37; Mixed apneas 0; hypopneas 8; RERAs 0; average oxygen saturation 93% (lowest 82% - without saturations <88% for 5% or more of study); PLMs 0. SMS Split Night Study. 03/19/2022. Weight 350; BMI 45. AHI 55. Obstruct* Covid-19 03/06/2021 DX:COVID-19 Lumbar herniated disc 01/10/2024 DX:Lumbar herniated disc Family History Medical History Relation Name Comments Blindness Father Cataracts Father Diabetes Father at 59 Hypertension Father Diabetes Mother Hypertension Mother Other: fibromyalgia Mother Coronary artery disease Other Grandmother Unsp ecified whether maternal or paternal Glaucoma Neg Hx macular degener ation, strabismus Macular degeneration Neg Hx Strabismus Neg Hx Relation Name Status Comments Father Mother Alive Other Grandmother Social History Tobacco Use Types Packs/Day Years Used Date Smoking Tobacco: Former Cigarettes Q uit: 03/18/2020 Smokeless Tobacco: Never Tobacco Cessation:Counseling Given: Not Answered Alcohol Use Standard Drinks/Week Comments Yes 0 (1 standard drink = 0.6 oz pur e alcohol) occasional Sex and Gender Information Value Date Recorded Sex Assigned at Not on file Gender Identity Not on file Sexual Orientation Not on file Job Start Date Occupation Industry Not on file Not on file Not on file Obstetrics History Last Filed Vital Signs Vital Sign Reading Time Taken Comments Blood Pressure 132/70 10/27/2024 5:47 PM EST Pulse 83 10/27/2024 1:35 PM EST Temperature - - Respiratory Rate - - Oxygen Saturation 95% 10/27/2024 1:35 PM EST Inhaled Oxygen Concentration - - Weight 167 kg (369 lb) 10/27/2024 1:35 PM EST Height 188 cm (6' 2 ) 10/27/2024 1:35 PM EST Body Mass Index 47.38 10/27/2024 1:35 PM EST Plan of Treatment Upcoming Encounters Date Type Department Care Team (Late st Contact Info) Description 12/12/2024 2:00 PM EST Medication Management Adult Medicine [address] [phone] Sandra Patel, PharmD [address] [place] [phone] 12/19/2024 1:20 PM EST Consult Gastroenterology - [place] [address] [facility] [address] [place] [address] Deisy Haas NP [address] [facility] [address] [place] [address] Health Maintenance Due Date Last Done Comments Pneumococcal Vaccine: Pediatrics (0 to 5 Years) and At-Risk Patients (6 to 64 Years) (1 of 2 - PCV) 1973 Zoster Vaccines (1 of 2) 2017 Depression Screening 10/17/2022 Medicare Annual Wellness Visit 10/17/2022 Social Influencers of Health Screening 10/17/2022 COVID-19 Vaccine ( season) 2024 08/28/2022, 11/17/2021, 04/05/2021, Additional history exists Influenza Vaccine (#1) 2024 Diabetes: Annual Urine Albumin-Creatinine Ratio (uACR) 10/29/2024 10/29/2023 Diabetes: Blood Sugar Control Test (HGBA1C) 12/09/2024 06/08/2024, 06/08/2024, 03/08/2024 Diabetes: Annual Retina Eye Exam 01/10/2025 01/11/2024 Diabetes: Annual Foot Exam 03/08/2025 03/08/2024 Diabetes: Annual GFR (Glomerular Filtration Rate) 10/03/2025 10/03/2024, 06/08/2024, 06/08/2024, Additional history exists Hypertension/CHF/CAD Annual BMP Blood Test 10/03/2025 10/03/2024, 06/08/2024, 06/08/2024, Additional history exists Colorectal Cancer Screening: Colonoscopy 12/20/2027 12/20/2017 DTaP,Tdap,and Td Vaccines (3 - Td or Tdap) 04/18/2029 04/18/2019, 04/02/2009 Cholesterol Screening (Lipid Panel) 10/03/2029 10/03/2024, 03/08/2024, 03/08/2024 Hepatitis B Vaccines Completed 03/26/2021, 11/22/2020, 10/23/2020 HIV Screening Completed 03/08/2024, 03/08/2024 Hepatitis C Screening Completed 03/08/2024 HIB Vaccines Aged Out No longer eligi ble based on patient's age to complete this topic HPV Vaccines Aged Out No longer eligi ble based on patient's age to complete this topic Hepatitis A Vaccines Aged Out No long er eligible based on patient's age to complete this topic IPV Vaccines Aged Out No longer eligi ble based on patient's age to complete this topic MMR Vaccines Aged Out No longer eligi ble based on patient's age to complete this topic Meningococcal ACWY Vaccine Aged Out N o longer eligible based on patient's age to complete this topic RSV Immunization Patients Under 20 months Aged Out No longer eligible based on patient's age to complete this topic Varicella Vaccines Aged Out No longer eligible based on patient's age to complete this topic Procedures Procedure Name Priority Date/Time Associated Diagnosis Comments ECG 12-LEAD Routine 10/27/2024 1:45 PM EST Chest pain, unspecified type NSTEMI (non-ST elevated myocardial infarction) ([facility]) ALANINE AMINOTRANSFERASE Routine 8:53 AM EST Primary hypertension ASPARTATE AMINOTRANSFERASE Routine 10/03/2024 8:53 AM EST Primary hypertension BASIC METABOLIC PANEL Routine 10/03/2024 8:53 AM EST Primary hypertension LIPID PANEL WITH REFLEX TO DIRECT LDL Routine 10/03/2024 8:53 AM EST Primary hypertension HEMOGLOBIN A1C Routine 06/08/2024 HEPATITIS C SCREENING Routine 03/08/2024 HIV SCREENING Routine 03/08/2024 DIABETES FOOT EXAM Routine 03/08/2024 DIABETES EYE EXAM Routine 01/11/2024 URINE ALBUMIN CREATININE RATIO Routine 10/29/2023 COLONOSCOPY Routine 12/20/2017 from Last 3 Months or Most Recently Relevant to Health Maintenance Results * ECG 12 lead (10/27/2024 1:45 PM EST) Ventricular Rate ECG 70 BPM GEMUSE Atrial Rate 70 BPM GEMUSE P-R Interval 168 ms GEMUSE QRS Duration 94 ms GEMUSE Q-T Interval 406 ms GEMUSE QTc 438 ms GEMUSE P Wave [place] 37 degrees GEMUSE R [place] -8 degrees GEMUSE T [place] -17 degrees GEMUSE ECG Interpretation Normal sinus rhythm Minimal voltage criteria for LVH, may be normal variant Nonspecific ST abnormality Abnormal ECG When compared with ECG of 07-JAN-2023 18:31, T wave inversion now evident in Inferior leads Confirmed by Gianni HUNT, ROBERT ([id number]) on 10/27/2024 5:20:47 PM GEMUSE 10/27/2024 1:45 PM EST 10/27/2024 5:20 PM EST Robert Hunt MD ECG ORDERABLES GEMUSE * (ABNORMAL) Lipid panel with reflex to direct LDL (10/03/2024 8:53 AM EST) Cholesterol 118 0 - 200 mg/dL LAB CHEMISTRY METHOD 10/03/2024 12:24 PM EST [facility] Triglycerides 109 0 - 150 mg/dL LAB CHEMISTRY METHOD 10/03/2024 12:24 PM EST [facility] HDL 36(L) >=40 mg/dL LAB CHEMISTRY METHOD 10/03/2024 12:24 PM EST [facility] LDL Calculated 60 0 - 100 mg/dL LAB CHEMISTRY METHOD 10/03/2024 12:24 PM EST [facility] VLDL Cholesterol Amanuel 21.8 mg/dL LAB CHEMISTRY METHOD 10/03/2024 12:24 PM EST [facility] Non HDL Chol. (LDL+VLDL) 82 <145 mg/dL LAB CHEMISTRY METHOD 10/03/2024 12:24 PM EST [facility] Chol/HDL Ratio 3.3 0.0 - 4.4 LAB CHEMISTRY METHOD 10/03/2024 12:24 PM [facility] Blood Venous blood specimen / Unknown Venipuncture / Unknown 10/03/2024 8:53 AM EST 10/03/2024 8:53 AM EST Juan Rogers MD LAB BLOOD ORDERABLES Performing Organization Address City/[facility]/ZIP Co de Phone Number [facility] [address] [place] [address], [place] [phone] * Alanine aminotransferase (10/03/2024 8:53 AM EST) ALT (SGPT) 26 10 - 60 unit/L LAB CHEMISTRY METHOD 10/03/2024 12:24 PM EST [facility] Blood Venous blood specimen / Unknown Venipuncture / Unknown 10/03/2024 8:53 AM EST 10/03/2024 8:53 AM EST Juan Rogers MD LAB BLOOD ORDERABLES Performing Organization Address [facility] Co de Phone Number [facility] [address] [place] [address], [place] [phone] * Aspartate aminotransferase (10/03/2024 8:53 AM EST) AST (SGOT) 22 10 - 42 unit/L LAB CHEMISTRY METHOD 10/03/2024 12:24 PM EST [facility] Blood Venous blood specimen / Unknown Venipuncture / Unknown 10/03/2024 8:53 AM EST 10/03/2024 8:53 AM EST Juan Rogers MD LAB BLOOD ORDERABLES Performing Organization Address City/[facility]/ZIP Co de Phone Number [facility] [address] [place] [address], [place] [phone] * (ABNORMAL) Basic metabolic panel (10/03/2024 8:53 AM EST) Sodium 140 133 - 145 mmol/L LAB CHEMISTRY METHOD 10/03/2024 12:24 PM [facility] Potassium 3.6 3.5 - 5.5 mmol/L LAB CHEMISTRY METHOD 10/03/2024 12:24 PM [facility] Chloride 105 96 - 110 mmol/L LAB CHEMISTRY METHOD 10/03/2024 12:24 PM [facility] CO2 28 21 - 32 mmol/L LAB CHEMISTRY METHOD 10/03/2024 12:24 PM [facility] Anion Gap 7 3 - 11 LAB CHEMISTRY METHOD 10/03/2024 12:24 PM [facility] Glucose 117(H) 70 - 100 mg/dL LAB CHEMISTRY METHOD 10/03/2024 12:24 PM [facility] BUN 12 5 - 25 mg/dL LAB CHEMISTRY METHOD 10/03/2024 12:24 PM [facility] Creatinine 1.33(H) 0.70 - 1.30 mg/dL LAB CHEMISTRY METHOD 10/03/2024 12:24 PM [facility] eGFR 62 >=60 mL/min/1. 73m2 LAB CHEMISTRY METHOD 10/03/2024 12:24 PM [facility] Comment:Calculation based on the??Chronic Kidney Disease Epidemiology Collaboration (CKD-EPI) equation refit??without adjustment for race. BUN/Creatinine Ratio 9.0 LAB CHEMISTRY METHOD 10/03/2024 12:24 PM [facility] Calcium 9.4 8.5 - 10.5 mg/dL LAB CHEMISTRY METHOD 10/03/2024 12:24 PM [facility] Blood Venous blood specimen / Unknown Venipuncture / Unknown 10/03/2024 8:53 AM EST 10/03/2024 8:53 AM EST Juan S Skalski MD LAB BLOOD ORDERABLES [facility] [address] [place] [address], * (ABNORMAL) Hemoglobin A1c (06/08/2024) [facility] [address] Hemoglobin A1C 8.7(A) 6.5 % Blood Venous blood specimen / Unknown Historical Provider LAB BLOOD ORDERAB LES * HIV Screening (03/08/2024) [facility] [address] HIV Screening Abstracted Historical Provider [facility] * Hepatitis C Screening (03/08/2024) [facility] Hepatitis C Screening Abstracted Historical Provider [facility] * Diabetes Foot Exam (03/08/2024) [facility] Diabetes: Annual Foot Exam Abstracted Historical Provider [employer] [facility] * Diabetes Eye Exam (01/11/2024) [facility] [address] Diabetes: Annual Retina Eye Exam Abstracted Historical Provider [facility] * Urine Albumin Creatinine Ratio (10/29/2023) [facility] Urine Albumin Creatinine Ratio Abstracted Historical Provider [facility] * Colonoscopy (12/20/2017) [facility] Colonoscopy Abstracted, No interpretation Anatomical Region Laterality Modality Other Historical Provider [employer] E from Last 3 Months or Most Recently Relevant to Health Maintenance Care Teams Collar Baster Jumpbasting Relationship Specialty Start Date End Date Juan Rogers MD [address] [place] [phone] PCP - General Internal Medicine 09/12/24
== END 2024-12-08 13:18 | disposition home or self-care (01) ==
PROVIDERS: Absent Provider Nurse Practitioner Family; PCP Internal Medicine; Visit Provider Nurse Practitioner Family
DX: G47.33 Obstructive sleep apnea (adult) (pediatric) (principal); E66.01 Morbid (severe) obesity due to excess calories; Z68.42 Body mass index [BMI] 45.0-49.9, adult; R51.9 Headache, unspecified
CPT/HCPCS: 99214

== ENCOUNTER → 2024-12-08 08:29 | Outpatient (BNVA) | payer MEDICARE, MEDICAID, SELFPAY | PROVIDERS: Absent Provider Physician Assistant Medical; PCP Internal Medicine; Visit Provider Physician Assistant Medical ==

== ENCOUNTER 2025-07-19 11:36 | Outpatient (AMB) | payer OTHER, MEDICARE, SELFPAY ==
--- NOTE | 2025-07-19 11:36 | MHC.OFFVIS ---
Vital Signs 07/19/25 11:37 Height 6 ft 2 in Weight 376 lb 8 oz BMI 48.3 BP 142/84 H Blood Pressure Location Rt brachial Position Sitting Pulse 84 Pulse Source Pulse Oximeter Pulse Oximetry (%) 95 Oxygen Delivery Method Room Air Intake Visit Reasons: Follow Up Intake Note: Patient presents follow up for MANUELITO- Compliance in chart Tomography Technologist Required: No Accompanied by: Self / Same As Patient Allergies ibuprofen Allergy (Verified 07/19/25 11:36) Hives ketorolac (From Toradol) Allergy (Verified 07/19/25 11:36) Hives Penicillins Allergy (Verified 07/19/25 11:36) Hives tramadol Allergy (Verified 07/19/25 11:36) Hives Medication List - Last Reconciled 07/19/25 by ANTIONETTE Spann amlodipine 5 mg PO DAILY aspirin 81 mg PO DAILY atorvastatin 20 mg PO DAILY blood-glucose meter (FreeStyle Lite Meter kit) As directed dulaglutide (Trulicity) 1.5 mg subcut QWEEK fluoride (sodium) 1.1% PO fluticasone propionate 50 mcg/actuation 2 sprays intranasal DAILY hydralazine 50 mg PO TID hydrochlorothiazide 25 mg PO DAILY hydroxyzine HCl 25 mg PO TID PRN lancets (FreeStyle Lancets) As directed linaclotide (Linzess) 290 mcg PO DAILY losartan 100 mg PO DAILY mupirocin 2% topical ofloxacin 0.3% 0 drps otic (ears) HPI Comments Details: 60-yr-old male presents for f/u visit for MANUELITO. Pt denies any significant interval medical changes. However, he lost his mom in the Spring, which he is trying to cope with, as well as with the stressors of managing her state as he was her HCP and executor. Pt reports that he did see neurology for BLE paresthesias- was told this is r/t diabetic neuropathy. He thinks it may be r/t his sciatica as well. 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 His children have done well on Zepbound. He states he is now more bothered by his CPAP, but he does sleep well with his CPAP. Just some nights, he feels tethered to his CPAP. His only real primary concern is that his machine is still prone to running out of water- using distilled water. He is curious about Inspire tx for MANUELITO. He has not had any interval bothersome headaches. 06/19/2024 - 07/18/[address], [id number] Email: [email or web address] Compliance Report Usage 04/14/2025- - 07/12/2025 Usage days : 100% Usage > 4 hours: 99% Average usage (days used) 6 hours 42 minutes AirSense 11 AutoSet Serial number [id number] Mode CPAP Set pressure 15 cmH2O EPR Fulltime EPR level 3 Therapy Leaks Median: 5.1 L/min Maximum: 43 L/min Residual events per hour: AHI 3.6 per hour PFSH Medical History Diabetes High blood pressure High cholesterol Surgical History No history of previous surgery Family History Mother Diabetes Father Diabetes Maternal Grandmother Diabetes Brother Heart disease Social History Alcohol intake: current Alcohol intake frequency: a few times a month Patient Tobacco Use Status: Former Tobacco user Current occupational status: disabled Physical Exam Vital Signs: Last Vital Signs Pulse 84 07/19/25 11:37 BP 142/84 H 07/19/25 11:37 Pulse Ox 95 07/19/25 11:37 Oxygen Delivery Method Room Air 07/19/25 11:37 BMI result Body Mass Index 48.3 Const General: cooperative and no acute distress Orientation/consciousness: patient oriented x3 Resp Effort & Inspection: normal respiratory effort and able to speak in complete sentences Neuro General: patient oriented x3 Cranial nerves: Yes CN's II-XII intact bilaterally Cognition (Neuro): normal cognition Psych Appearance: grossly normal Mental Status: mental status grossly normal Speech and movement: Normal speech and movement present Affect: normal affect Attitude: cooperative Assessment & Plan Assessment & Plan (1) Obstructive sleep apnea: Comment: severe Code(s): G47.33 - Obstructive sleep apnea (adult) (pediatric) Category: Medical (2) Morbid obesity with body mass index (BMI) of 45.0 to 49.9 in adult: Code(s): E66.01 - Morbid (severe) obesity due to excess calories; Z68.42 - Body mass index [BMI] 45.0-49.9, adult Category: Medical (3) New onset headache: Comment: w/ migraine features- improved Code(s): R51.9 - Headache, unspecified Category: Medical Plan For MANUELITO: Continue CPAP 15 cmH2O, as pt is experiencing good clinical effect from use. Use CPAP nightly > 4 hrs for best clinical effect. Clean and change CPAP supplies regularly Continue to use distilled water in CPAP water tank reservoir. Pt would not be a candidate for Inspire as his BMI is > 45. For headache- Improved. May hold Nurtec. May use Tylenol prn. Previous brain MRI- incomplete d/t anxiety- reconsider repeating if headaches worsen. Contraindications: NSAIDs- d/t allergy, Triptans d/t HTN and HLD. ? For cognition: No concerns expressed today. Encouraged to continue to optimize overall healthy lifestyle choices, such as eating a well rounded diet, engaging in regular physical activity. ? For BLE, R > L paresthesias: f/u w/ Dr Espino as scheduled ? Pt to follow-up in 6-12 months or sooner prn. Coding Level of Care Code Est Pt Level 3 (72279) Diagnoses Obstructive sleep apnea G47.33 Morbid obesity with body mass index (BMI) of 45.0 to 49.9 in adult E66.01; Z68.42 New onset headache R51.9
[2025-07-19 11:37] VITALS: BP 142/84; PULSE 84; O2SAT 95; BMI 48.3
--- OUTSIDE RECORDS SUMMARY | 2025-07-19 15:58 | XMS_ITS | Encounter Summary ---
Author Organization [facility] [place] [address] Care Team Providers Care Advertising Space Clerk Name Role Phone Juan Rogers MD Primary Care Provider [phone] Reason for Visit * Reason Onset Date Comments Provider Call Back 07/12/2025 Encounter Details Date Type Department Care Team (Late st Contact Info) Description 07/12/2025 Telephone [facility] - [address] [phone] Oliva Gray MD [address] [place] [id number] Social History Tobacco Use Types Packs/Day Years Used Date Smoking Tobacco: Former Cigarettes Q uit: 03/18/2020 Smokeless Tobacco: Never Alcohol Use Standard Drinks/Week Comments Yes 0 (1 standard drink = 0.6 oz pur e alcohol) occasional Sex and Gender Information Value Date Recorded Sex Assigned at Not on file Legal Sex Male 6:09 AM EST Gender Identity Not on file Sexual Orientation Not on file documented as of this encounter Progress Notes * Carol Patel - 07/12/2025 11:19 AM EDT Pt calling stating he was scheduled to complete an MRI. But he is claustrophobic and has high anxiety so he was unable to complete. He would like to know if there is any other alternative ? Please advise ? [phone] documented in this encounter Plan of Treatment Upcoming Encounters Date Type Department Care Team (Late st Contact Info) Description 07/25/2025 1:15 PM EDT Consult Orthopedic Surgery - [place] [address] [phone] Zi Tadeo, DPM [address] [address] 08/06/2025 2:00 PM EDT Appointment Radiology Department - [address] [phone] 08/06/2025 2:20 PM EDT Appointment Radiology Department - [address] [phone] 08/07/2025 1:00 PM EDT Appointment [facility] Ultrasound [address] [place] [address] 08/13/2025 1:15 PM EDT Office Visit Endocrinology - [address] [phone] Oliva Gray MD [address] [place] [id number] documented as of this encounter Visit Diagnoses Not on filedocumented in this encounter Care Teams Advertising Space Clerk Relationship Specialty Start Date End Date Juan Rogers MD [address] [place] [id number] PCP - General Internal Medicine 09/12/24 documented as of this encounter
--- OUTSIDE RECORDS SUMMARY | 2025-07-19 15:58 | XMS_ITS ---
Author Name [facility] Organization Unknown Care Team Organization Name Specialty Phone Email Start Date End Da te [facility] Lea Iniguez Primary Care 04/16/202306/08 [facility] Juan Rogers Primary Care 09/15/2022 06/26/20 24
--- OUTSIDE RECORDS SUMMARY | 2025-07-19 15:58 | XMS_ITS | Clinical Summary ---
Author Organization [facility] [address] [facility] Building Address [address] [place] [address] Phone Care Team Providers Care Storage Battery Inspector And Tester Name Role Phone Juan Rogers MD Primary Care Provider [phone] Allergies Active Allergy Reactions Criticality Noted Date Comments Ibuprofen 06/02/2013 Aspartame-Fd&C Yellow #6-Ibuprofen: Other Reaction(s): Hives/Urticaria Ketorolac 02/27/2010 Other Reaction(s): Hives/Urticaria Penicillin G Potassium 12/09/2005 Tramadol 10/01/2014 rash Medications blood glucose control high,low (FreeStyle Control) solution 1 Each by In Vitro route daily. 03/08/20 24 Active peg 400-hypromell ose-glycerin (Dry Eye Relief) 1-0.2-0.2 % drops apply 1 Drop to the eye at bedtime as needed (dry eyes). 03/09/20 24 Active hydrocortison e (ANUSOL-HC) 2.5 % rectal cream Apply 1 Film topically 2 times daily. 04/04/20 24 Active mupirocin (BACTROBAN) 2 % ointment Apply topically 2 (two) times a day. For 7 days then once daily for 2-3 weeks 22 g 09/14/20 24 Active freestyle (FreeStyle Lancets) 28 gauge lancets Use to test blood sugar once daily dxe11.9 100 each 3 10/10/20 24 Active clotrimazole- betamethasone (LOTRISONE) 1-0.05 % cream Apply 1 Application topically 2 (two) times a day. APPLY TO AFFECTED AREA 30 g 1 12/20/19 25 Active fluticasone propionate (FLONASE) 50 mcg/actuation nasal spray SHAKE WELL AND INSTILL 2 SPRAYS INTO EACH NOSTRIL EVERY DAY 48 g 01/01/20 25 Active hydrOXYzine HCL (ATARAX) 25 mg tablet TAKE 1 TABLET(25 MG) BY MOUTH THREE TIMES DAILY NEEDED FOR ANXIETY 90 tablet 1 01/31/20 25 Active losartan (COZAAR) 100 mg tablet TAKE 1 TABLET BY MOUTH DAILY 90 tablet 1 01/30/20 25 Active dulaglutide (Trulicity) 1.5 mg/0.5 mL pen injector injectionIndi cations:New onset type 2 diabetes mellitus (CMS/HCC V24, CMS/HCC V28) Inject 0.5 mL (1.5 mg total) under the skin every 7 (seven) days. 6 mL 1 02/01/20 25 Active blood sugar diagnostic (FreeStyle Lite Strips) test stripIndicati ons:New onset type 2 diabetes mellitus (CMS/HCC V24, CMS/HCC V28) Use to test blood sugar once daily dxe11.9 100 each 3 03/12/20 25 Active Linzess 290 mcg capsule Take 1 capsule (290 mcg total) by mouth 1 (one) time each day before breakfast. 90 each 1 05/09/20 25 11/05/ 025 Active hydrALAZINE (APRESOLINE) 50 mg tablet Take 1.5 tablets (75 mg total) by mouth 3 (three) times a day. 360 tablet 1 05/23/20 25 Active amLODIPine (NORVASC) 5 mg tablet TAKE 1 TABLET(5 MG) BY MOUTH 1 TIME EACH DAY AT BEDTIME 90 tablet 06/15/20 25 Active atorvastatin (LIPITOR) 20 mg tablet TAKE 1 TABLET(20 MG) BY MOUTH 1 TIME EACH DAY 90 tablet 06/15/20 25 Active hydroCHLOROth iazide 12.5 mg tablet Take 2 tablets (25 mg total) by mouth 1 (one) time each day. 180 tablet 1 07/12/20 25 Active aspirin 81 mg EC tablet TAKE 1 TABLET BY MOUTH DAILY. APPOINTMENT DUE SOONER FOR ANY REFILLS, PLEASE CALL OFFICE TO SCHEDULE 90 tablet 07/18/20 25 Active aspirin 81 mg EC tablet Take 1 tablet (81 mg total) by mouth 1 (one) time each day. 90 tablet 1 09/14/20 24 025 Discontinued hydroCHLOROth iazide 12.5 mg tablet TAKE 2 TABLETS BY MOUTH DAILY 180 tablet 1 01/01/20 25 025 Discontinued(Re order) mupirocin (BACTROBAN) 2 % ointment Apply topically 3 (three) times a day for 10 days. 15 g 06/11/20 25 025 Active Problems Problem Noted Date Diagnosed Date Lumbar herniated disc 01/10/2024 Rectal bleeding 01/26/2023 Chest pain 01/26/2023 Assessment & Plan (10/27/2024 2:17 PM EST): Orders: ECG 12 lead Coronary artery disease 08/29/2021 Overview (05/23/2025): Assessment & Plan (05/23/2025 12:44 PM EDT): Patient has history of NSTEMI in 2016. Coronary angiogram during that time showed mild nonobstructive coronary disease with possibility of coronary spasm. He denies any recurrent exertional symptoms. He should continue with aspirin and statin as prescribed. He continues on amlodipine for antianginal components as well as for antihypertensive benefits. I have reviewed with the patient the importance of a heart healthy lifestyle which includes eating a low-fat low-salt diet, getting regular exercise, maintaining a healthy weight, not smoking, and following up with routine medical care. Assessment & Plan (10/27/2024 5:48 PM EST): [...] modifications. Obstructive sleep apnea 11/14/2018 Overview (08/28/2024): [facility] Polysomnogram: Date 11/06/2018; Wt 302# SE 36%; [...] 2018 polysomnogram. New onset type 2 diabetes me llitus ([facility] V24, [facility] V28) 02/16/2018 Overview (08/28/2024): A1c 6.1 on 02/16/18 [...] time and time again. NSTEMI (non-ST elevated myoc ardial infarction) ([facility] V24, [facility] V28) 2016 Overview (08/28/2024): Negative cath 12/2015 Dr. Butler, [facility] Assessment & Plan (10/27/2024 2:17 PM EST): Orders: ECG 12 lead Marijuana use 10/01/2014 Adrenal adenoma 01/30/2010 Primary hypertension 12/09/2005 Assessment & Plan (05/23/2025 12:44 PM EDT): His blood pressure today is elevated with a reading of 156/84. I will increase his hydralazine to 75 mg 3 times daily. He will continue with hydrochlorothiazide, amlodipine and losartan as prescribed. Patient encouraged to continue with low- salt diet and routine exercise and efforts to lose weight. Backache 12/09/2005 Overview (08/28/2024): s/p laminectomy 08/13: Minor L3-4 degenerative disc disease, stable since 2000. Small central disc herniation without associated nerve root impingement, also stable since 2000. Postoperative changes at L5-S1 with epidural scarring about the right S1 nerve root, less conspicuous since 2000. No evidence of recurrent disc herniation or postoperative complications. IMO update Encounters Date Type Department Care Team Description 07/12/2025 Telephone Endocrinology - [address] [phone] Oliva Gray MD 07/02/2025 11:30 AM EDT Consult Endocrinology - [address] [phone] Oliva Gray MD Gynecomastia (Primary Dx); Low testosterone 06/11/2025 3:45 PM EDT Office Visit Walk-In Clinic - [address] [place] [phone] Darrell Small PA Ingrown nail of great toe (Primary Dx) 05/23/2025 11:10 AM EDT Office Visit [facility] [address] [facility] [place] [phone] Miri Stout NP NSTEMI (non-ST elevated myocardial infarction) ([facility] V24, [facility] V28) (Primary Dx); Coronary artery disease involving emmonak coronary artery of emmonak heart without angina pectoris; Primary hypertension 04/30/2025 Telephone [facility] [address] [facility] [address] [place] [phone] Gennaro Hunt MD from Last 3 Months Immunizations Name Administration Dates Next Due Hepatitis B (Jvjypia-P-Mvbxr , Recombivax HB-Adult) 19yo and older 03/26/2021,11/22/2020,10/23/2020 [...] New onset type 2 diabetes me llitus ([facility] V24, [facility] V28) DX:New onset type 2 diabete s mellitus ([facility]) NSTEMI (non-ST elevated myoc ardial infarction) ([facility] V24, [facility] V28) 2016 DX:NSTEMI (non-ST elevated m yocardial infarction) ([facility]); COMMENT: Negative cath 12/2015 Dr. Butler, [place] Coronary artery disease 08/29/2021 DX:Coron dinesh artery [...] on file Sexual Orientation Not on file Obstetrics History Last Filed Vital Signs Vital Sign Reading Time Taken Comments Blood Pressure 138/74 07/02/2025 11:21 AM EDT Pulse 79 07/02/2025 11:21 AM EDT Temperature 36.6 C (97.9 F) 07/02/2025 11:21 AM EDT Respiratory Rate 20 07/02/2025 11:21 AM EDT Oxygen Saturation 95% 07/02/2025 11:21 AM EDT Inhaled Oxygen Concentration - - Weight 172 kg (378 lb 6.4 oz) 07/02/2025 11:21 A M EDT Height 188 cm (6' 2 ) 07/02/2025 11:21 AM EDT Body Mass Index 48.58 07/02/2025 11:21 AM EDT Plan of Treatment Upcoming Encounters Date Type Department Care Team (Late st Contact Info) Description 07/25/2025 1:15 PM EDT Consult Orthopedic Surgery - [address] [place] [phone] ShwethaZi amezquita DPM [address] [phone] 08/06/2025 2:00 PM EDT Appointment Radiology Department - [address] [phone] 08/06/2025 2:20 PM EDT Appointment Radiology Department - [address] [phone] 08/07/2025 1:00 PM EDT Appointment [facility] Ultrasound [address] [place] [phone] 08/13/2025 1:15 PM EDT Office Visit Endocrinology - [address] [phone] Oliva Gray MD [address] [place] [address] Health Maintenance Due Date Last Done Comments Pneumococcal Vaccine: 50+ Years (1 of 2 - PCV) 1986 Zoster Vaccines (1 of 2) 2017 Medicare Annual Wellness Visit 10/17/2022 Social Influencers of Health Screening 10/17/2022 Depression Screening 11/08/2024 Diabetes: Annual Foot Exam 03/08/2025 03/08/2024 COVID-19 Vaccine ( season) 2025 08/28/2022, 11/17/2021, 04/05/2021, Additional history exists Influenza Vaccine (#1) 2025 Diabetes: Blood Sugar Control Test (HGBA1C) 07/19/2025 01/16/2025, 06/08/2024, 06/08/2024, Additional history exists Diabetes: Annual Retina Eye Exam 01/12/2026 01/12/2025, 01/11/2024 Diabetes: Annual Urine Albumin-Creatinine Ratio (uACR) 01/16/2026 01/16/2025, 10/29/2023 Diabetes: Annual GFR (Glomerular Filtration Rate) 03/12/2026 03/12/2025, 01/16/2025, 10/03/2024, Additional history exists Hypertension/CHF/CAD Annual BMP Blood Test 03/12/2026 03/12/2025, 01/16/2025, 10/03/2024, Additional history exists Colorectal Cancer Screening: Colonoscopy 12/20/2027 12/20/2017 DTaP,Tdap,and Td Vaccines (3 - Td or Tdap) 04/18/2029 04/18/2019, 04/02/2009 Cholesterol Screening (Lipid Panel) 03/12/2030 03/12/2025, 01/16/2025, 10/03/2024, Additional history exists Hepatitis B Vaccines Completed 03/26/2021, 11/22/2020, 10/23/2020 [...] patient's age to complete this topic Meningococcal B Vaccine Aged Out No l onger eligible based on patient's age to complete this topic RSV Immunization Patients Under 20 months Aged Out No longer eligible based on patient's age to complete this topic Varicella Vaccines Aged Out No longer eligible based on patient's age to complete this topic Procedures Procedure Name Priority Date/Time Associated Diagnosis Comments ACTH Routine 07/06/2025 11:23 AM EDT Low testosterone CORTISOL Routine 07/06/2025 11:23 AM EDT Low testosterone INSULIN-LIKE GROWTH FACTOR Routine 07/06/2025 11:23 AM EDT Low testosterone PROLACTIN Routine 07/06/2025 11:23 AM EDT Low testosterone TESTOSTERONE, TOTAL Routine 07/06/2025 1 1:23 AM EDT Low testosterone LUTEINIZING HORMONE Routine 07/06/2025 1 1:23 AM EDT Low testosterone FOLLICLE STIMULATING HORMONE Routine 07/06/2025 11:23 AM EDT Low testosterone HEMOGLOBIN AND HEMATOCRIT Routine 07/06/2025 11:23 AM EDT Low testosterone ECG 12-LEAD Routine 05/23/2025 12:44 PM EDT NSTEMI (non-ST elevated myocardial infarction) (CMS/HCC V24, CMS/HCC V28) Coronary artery disease involving emmonak coronary artery of emmonak heart without angina pectoris COMPREHENSIVE METABOLIC PANEL Routine 03/12/2025 11:52 AM EDT New onset type 2 diabetes mellitus (CMS/HCC V24, CMS/HCC V28) LIPID PANEL WITH REFLEX TO DIRECT LDL Routine 03/12/2025 11:52 AM EDT New onset type 2 diabetes mellitus (CMS/HCC V24, CMS/HCC V28) MICROALBUMIN CREATININE URINE RATIO Routine 01/16/2025 3:24 PM EDT Diabetes mellitus (CMS/HCC V24, CMS/HCC V28) HEMOGLOBIN A1C Routine 01/16/2025 2:27 PM EDT New onset type 2 diabetes mellitus (CMS/HCC V24, CMS/HCC V28) EXTERNAL DIABETIC RETINA EYE EXAM 01/12/2025 HEPATITIS C SCREENING Routine 03/08/2024 HIV SCREENING Routine 03/08/2024 DIABETES FOOT EXAM Routine 03/08/2024 COLONOSCOPY Routine 12/20/2017 from Last 3 Months or Most Recently Relevant to Health Maintenance Results * (ABNORMAL) Hemoglobin and hematocrit (07/06/2025 11:23 AM EDT) [facility] Hemoglobin 13.4(L) 13.5 - 17.5 g/dL LAB HEMETOLOGY METHOD 07/06/2025 12:45 PM EDT [facility] Hematocrit 40.3(L) 42.0 - 54.0 % LAB HEMETOLOGY METHOD 07/06/2025 12:45 PM EDT [facility] Blood Venous blood specimen / Unknown Venipuncture / Unknown 07/06/2025 11:23 AM EDT 07/06/2025 12:37 PM EDT us Oliva Gray MD LAB BLOOD ORDERABLES Final Resul t Performing Organization Address [facility] de Phone Number [facility] [address] [place] [address], [place] [phone] * Prolactin (07/06/2025 11:23 AM EDT) [facility] Prolactin 7.60 2.50 - 17.40 ng/mL LAB CHEMISTRY METHOD 07/06/2025 1:44 PM EDT [facility] Blood Venous blood specimen / Unknown Venipuncture / Unknown 07/06/2025 11:23 AM EDT 07/06/2025 12:36 PM EDT Oliva Gray MD LAB BLOOD ORDERABLES Final Resul t [facility] [address] [place] [address], [place] [phone] * Insulin-like growth factor (07/06/2025 11:23 AM EDT) [facility] Insulin-like Growth Factor 1 116 68 - 247 ng/mL 07/10/2025 5:32 PM EDT [facility] Comment: Test performed at [facility], [address], [place] [address] Irais Lantigua MD, PhD - Systems Security Consultant Blood Venous blood specimen / Unknown Venipuncture / Unknown 07/06/2025 11:23 AM EDT 07/06/2025 12:36 PM EDT Oliva Gray MD LAB BLOOD ORDERABLES Final Resul t [facility] [address] [place] [address] * ACTH (07/06/2025 11:23 AM EDT) Adrenocorticotropic Hormone (ACTH) 21 <=46 pg/mL 07/10/2025 10:51 AM EDT [facility] Comment: Test performed at [facility], [address] [place] [address] Irais Lantigua MD, PhD - Systems Security Consultant Blood Venous blood specimen / Unknown Venipuncture / Unknown 07/06/2025 11:23 AM EDT 07/06/2025 12:36 PM EDT us Oliva Gray MD LAB BLOOD ORDERABLES Final Resul t Performing Organization Address City/[facility]/ZIP Co de Phone Number [facility] [address] [place] [address] * (ABNORMAL) Testosterone, total (07/06/2025 11:23 AM EDT) Testosterone 175(L) 229 - 902 ng/dL LAB CHEMISTRY METHOD 07/06/2025 2:19 PM EDT [facility] Blood Venous blood specimen / Unknown Venipuncture / Unknown 07/06/2025 11:23 AM EDT 07/06/2025 12:36 PM EDT us Oliva Gray MD LAB BLOOD ORDERABLES Final Resul t [facility] [address] [place] [address], [place] [phone] * Luteinizing hormone (07/06/2025 11:23 AM EDT) Luteinizing Hormone 5.6 1.2 - 10.6 mIU/mL LAB CHEMISTRY METHOD 07/06/2025 1:44 PM EDT [facility] Blood Venous blood specimen / Unknown Venipuncture / Unknown 07/06/2025 11:23 AM EDT 07/06/2025 12:36 PM EDT Oliva Gray MD LAB BLOOD ORDERABLES Final Resul t [facility] [address] [place] [address], [place] [phone] * Follicle stimulating hormone (07/06/2025 11:23 AM EDT) Follicle Stimulating Hormone 3.9 0.7 - 10.8 mIU/mL LAB CHEMISTRY METHOD 07/06/2025 1:44 PM EDT [facility] Blood Venous blood specimen / Unknown Venipuncture / Unknown 07/06/2025 11:23 AM EDT 07/06/2025 12:36 PM EDT us Oliva Gray MD LAB BLOOD ORDERABLES Final Resul t [facility] [address] [place] [address], [place] [phone] * Cortisol (07/06/2025 11:23 AM EDT) Cortisol 9.3 mcg/dL LAB CHEMISTRY METHOD 07/06/2025 2:18 PM EDT [facility] Blood Venous blood specimen / Unknown Venipuncture / Unknown 07/06/2025 11:23 AM EDT 07/06/2025 12:36 PM EDT Narrative [facility] - 07/06/2025 2:18 PM EDT CORTISOL REFERENCE RANGE 8 AM SPEC: 5.0-23.0 mcg/dL 4 PM SPEC: 3.0-16.0 mcg/dL 8 PM SPEC: <5.0 mcg/dL Oliva Gray MD LAB BLOOD ORDERABLES Final Resul t Performing Organization Address [facility]/ZIP Co de Phone Number [facility] [address] [place] [address], [place] [phone] * ECG 12 lead (05/23/2025 12:44 PM EDT) Ventricular Rate ECG 73 BPM GEMUSE Atrial Rate 73 BPM GEMUSE P-R Interval 158 ms GEMUSE QRS Duration 90 ms GEMUSE Q-T Interval 398 ms GEMUSE QTc 438 ms GEMUSE P Wave [place] 46 degrees GEMUSE R [place] -7 degrees GEMUSE T [place] 0 degrees GEMUSE ECG Interpretation Normal sinus rhythm Nonspecific ST abnormality Abnormal ECG When compared with ECG of 27-OCT-2024 13:45, No significant change was found Confirmed by SRUTHI LUCERO ([id number]) on 05/25/2025 9:42:34 AM GEMUSE 05/23/2025 11:1 9 AM EDT 05/25/2025 9:42 AM EDT Miri Stout HABITAT MANAGEMENT COORDINATOR ECG ORDERABLES Edited Resul t - Final Performing Organization Address [facility] Co de Phone Number GEMUSE * (ABNORMAL) Lipid panel with reflex to direct LDL (03/12/2025 11:52 AM EDT) Cholesterol 119 0 - 200 mg/dL LAB CHEMISTRY METHOD 03/12/2025 3:35 PM EDT [facility] Triglycerides 127 0 - 150 mg/dL LAB CHEMISTRY METHOD 03/12/2025 3:35 PM EDT [facility] HDL 38(L) >=40 mg/dL LAB CHEMISTRY METHOD 03/12/2025 3:35 PM EDT [facility] LDL Calculated 56 0 - 100 mg/dL LAB CHEMISTRY METHOD 03/12/2025 3:35 PM EDT [facility] VLDL Cholesterol Amanuel 25.4 mg/dL LAB CHEMISTRY METHOD 03/12/2025 3:35 PM EDT [facility] Non HDL Chol. (LDL+VLDL) 81 <145 mg/dL LAB CHEMISTRY METHOD 03/12/2025 3:35 PM EDT [facility] Chol/HDL Ratio 3.1 0.0 - 4.4 LAB CHEMISTRY METHOD 03/12/2025 3:35 PM EDT [facility] Blood Venous blood specimen / Unknown Venipuncture / Unknown 03/12/2025 11:52 AM EDT 03/12/2025 11:52 AM EDT us Juan Rogers MD LAB BLOOD ORDERABLES Final Res ult [facility] [address] [place] [address], [place] [phone] * (ABNORMAL) Comprehensive metabolic panel (03/12/2025 11:52 AM EDT) Sodium 141 133 - 145 mmol/L LAB CHEMISTRY METHOD 03/12/2025 3:35 PM [facility] Potassium 3.7 3.5 - 5.5 mmol/L LAB CHEMISTRY METHOD 03/12/2025 3:35 PM T [facility] Chloride 105 96 - 110 mmol/L LAB CHEMISTRY METHOD 03/12/2025 3:35 PM T [facility] CO2 28 21 - 32 mmol/L LAB CHEMISTRY METHOD 03/12/2025 3:35 PM [facility] Anion Gap 8 3 - 11 LAB CHEMISTRY METHOD 03/12/2025 3:35 PM [facility] Glucose 106(H) 70 - 100 mg/dL LAB CHEMISTRY METHOD 03/12/2025 3:35 PM [facility] BUN 10 5 - 25 mg/dL LAB CHEMISTRY METHOD 03/12/2025 3:35 PM [facility] Creatinine 1.12 0.70 - 1.30 mg/dL LAB CHEMISTRY METHOD 03/12/2025 3:35 PM [facility] eGFR 76 >=60 mL/min/1. 73m2 LAB CHEMISTRY METHOD 03/12/2025 3:35 PM [facility] Comment:Calculation based on the Chronic Kidney Disease Epidemiology Collaboration (CKD-EPI) equation refit without adjustment for race. BUN/Creatinine Ratio 8.9 LAB CHEMISTRY METHOD 03/12/2025 3:35 PM [facility] Calcium 9.0 8.5 - 10.5 mg/dL LAB CHEMISTRY METHOD 03/12/2025 3:35 PM [facility] AST (SGOT) 21 10 - 42 unit/L LAB CHEMISTRY METHOD 03/12/2025 3:35 PM [facility] ALT (SGPT) 33 10 - 60 unit/L LAB CHEMISTRY METHOD 03/12/2025 3:35 PM [facility] Alkaline Phosphatase 107 42 - 121 unit/L LAB CHEMISTRY METHOD 03/12/2025 3:35 PM [facility] Total Protein 7.2 6.0 - 8.0 g/dL LAB CHEMISTRY METHOD 03/12/2025 3:35 PM [facility] Albumin 3.9 3.2 - 5.0 g/dL LAB CHEMISTRY METHOD 03/12/2025 3:35 PM [facility] Total Bilirubin 0.5 0.0 - 1.4 mg/dL LAB CHEMISTRY METHOD 03/12/2025 3:35 PM [facility] Blood Venous blood specimen / Unknown Venipuncture / Unknown 03/12/2025 11:52 AM EDT 03/12/2025 11:52 AM EDT us Juan Rogers MD LAB BLOOD ORDERABLES Final Res ult [facility] [address] [place] [address], [place] [phone] * Microalbumin creatinine urine ratio (01/16/2025 3:24 PM EDT) Creatinine, Urine 256.0 mg/dL LAB CHEMISTRY METHOD 01/16/2025 9:03 PM EDT [facility] Microalb, Ur 18.1 0.0 - 29.0 mg/L LAB CHEMISTRY METHOD 01/16/2025 9:03 PM EDT [facility] Microalb/Creat Ratio 7 <30 mg/g creat LAB CHEMISTRY METHOD 01/16/2025 9:03 PM EDT [facility] Urine Urine specimen obtained by clean catch procedure / Unknown Non-blood Collection / Unknown 01/16/2025 3:24 PM EDT 01/16/2025 3:24 PM EDT us Juan Rogers MD LAB URINE ORDERABLES Final Res ult Performing Organization Address City/[facility]/ZIP Co de Phone Number [facility] [address] [place] [address], [place] [phone] * (ABNORMAL) Hemoglobin A1c (01/16/2025 2:27 PM EDT) Hemoglobin A1C 6.5(H) <6.5 % LAB CHEMISTRY METHOD 01/16/2025 9:26 PM EDT [facility] Mean Bld Glu Estim. 140 mg/dL LAB CHEMISTRY METHOD 01/16/2025 9:26 PM EDT [facility] Blood Venous blood specimen / Unknown Venipuncture / Unknown 01/16/2025 2:27 PM EDT 01/16/2025 2:27 PM EDT Juan Rogers MD LAB BLOOD ORDERABLES Final Res ult [facility] [address] [place] [address], [place] [phone] * External Diabetic Retina Eye Exam Report (01/12/2025) Anatomical Region Laterality Modality Ultrasound Provider [facility] US PROCEDURES Final Result * HIV Screening (03/08/2024) Pathologist [facility] HIV Screening Abstracted Historical Provider HEALTH MAINTENANCE Final Result * Hepatitis C Screening (03/08/2024) Pathologist [facility] Hepatitis C Screening Abstracted Historical Provider HEALTH MAINTENANCE Final Result * Diabetes Foot Exam (03/08/2024) Pathologist [facility] Diabetes: Annual Foot Exam Abstracted Historical Provider HEALTH MAINTENANCE Final Result * Colonoscopy (12/20/2017) [facility] Colonoscopy Abstracted, No interpretation Anatomical Region Laterality Modality Other Historical Provider HEALTH MAINTENANCE Final Result from Last 3 Months or Most Recently Relevant to Health Maintenance Insurance [place]ICAID - [place] [employer] MEDICARE Care Teams Storage Battery Inspector And Tester Relationship Specialty Start Date End Date Juan Rogers MD [address] [place] [id number] PCP - General Internal Medicine 09/12/24
--- OUTSIDE RECORDS SUMMARY | 2025-07-19 15:58 | XMS_ITS | Clinical Summary ---
Author Organization [facility] Address [address] [place] [address] Care Team Providers Care Wind Turbine Technician Name Role Phone Tiffanie Logan DMD Primary Care Provider Source Comments PLEASE NOTE, if this patient [...] on file Insurance [place] [place] Care Teams Wind Turbine Technician Relationship Specialty Start Date End Date Tiffanie Logan DMD [address] [place] [address] PCP - General 01/17/21
== END 2025-07-19 12:45 | disposition home or self-care (01) ==
LOC: HO.HSMS 11:37
PROVIDERS: PCP Internal Medicine; Visit Provider Nurse Practitioner Family
DX: G47.33 Obstructive sleep apnea (adult) (pediatric) (principal); E66.01 Morbid (severe) obesity due to excess calories; Z68.42 Body mass index [BMI] 45.0-49.9, adult; R51.9 Headache, unspecified
CPT/HCPCS: 99213

== ENCOUNTER 2025-08-29 13:39 | Outpatient (REF) | payer OTHER, MEDICARE, SELFPAY ==
--- NOTE | ~2025-08-29 | XR_ITS ---
EXAMINATION: XR CERVICAL SPINE CLINICAL INFORMATION: M50.90 - Cervical disc disorder, unspecified, unspecified cervical region COMPARISON: None available. TECHNIQUE: AP oblique lateral and atlantoodontoid views. Swimmer's projection. FINDINGS: Craniocervical junction is intact. Marginal osteophyte formation/syndesmophyte formation extending from C3 to C6. No acute cortical disruption or malalignment. Bilateral neuroforamina stenosis secondary to posterior marginal osteophyte formation from C3-4 to C5-6 and C6-7 involving mostly the right side. No lytic or blastic lesions. Upper airway is patent. XR/XR cervical spine 4V IMPRESSION: Multilevel cervical spondylosis suggesting DISH from C3 to C7. Electronically signed by: Julio Cesar Kwong MD 08/29/2025 02:35 PM EDT
--- OUTSIDE RECORDS SUMMARY | 2025-08-29 20:19 | XMS_ITS | Data Portability ---
Author Organization [place] - [facility], Allergy Address [address] [place] [id number] Care Team Providers Care Inspector Elevators Name Role Phone JAIRO JARAMILLO Primary Care Provider Assessment Encounter Date Assessment Date Assessment LastModified by Organization Details LastModified Time 06/13/2024 06/13/2024 59-year-old male presents for evaluation of tinnitus. Otologic exam reveals cerumen impaction bilaterally which was cleared without difficulty. TMs normal to inspection. Audiometric testing was obtained today. Results show normal hearing and tympanometry bilaterally. Follow-up in 6 months for cerumen removal. jose enrique Not available 06/13/2024 12:49:33 12/15/2024 12/15/2024 59-year-old male presents for cerumen removal. No significant cerumen noted on either side. He does however have serous effusion on the right side. Recommended auto insufflation 10 times daily for the next few weeks. Effusion will resolve slowly over time. Follow-up in 6 months for reevaluation. jose enrique Not available 12/15/2024 14:08:41 06/22/2025 06/22/2025 60-year-old male presents for ear itching. No cerumen noted today. Recommended DermOtic for itching and instructed him in proper use. Follow-up in 4 months for cerumen removal. jose enrique Not available 06/22/2025 13:30:03 Plan of Treatment Reminders Order Date Submit Date Provider Last Modified By Organization Details Last Modified Time Details Appointments None recorded. Lab None recorded. Referral None recorded. Procedures None recorded. Surgeries None recorded. Imaging None recorded. Medication Orders DermOtic Oil 0.01 % ear drops 2024 025 [id number], [address], [place], [place], [phone], 5 13:30:42 Patient TargetsNo targets recorded. Patient InstructionsNo instructions recorded. Reason for Referral None Reported. Results Created Date Observation Date Name Description Value Unit Range Abnormal Flag Note LastModifiedBy Organization Detail LastModifiedTime 06/13/20 24 audio gram No observ ation record ed. [email or web address] Not Available 04/2024 16:14:47 Result Notes None recorded. Problems Name Problem SNOMED Code Status Onset Date Resolution Date Notes Provider Name and Address Organization Details Recorded Time Snoring 15980193 Active 2017 Snoring; Note: Date Diagnosed : 8 10:45 AM (R06.83) Not Available [facility] 4 03:00:20 Obstructi ve sleep apnea syndrome 89546506 Active 2017 Obstructi ve sleep apnea (adult) (pediatri c); Note: Date Diagnosed : 8 10:46 AM (G47.33) Not Available [facility] 4 03:00:21 Impacted cerumen of bilateral ears 14608380116 19141 Active 2017 Impacted cerumen, bilateral ; Note: Date Diagnosed : 8 10:33 AM (H61.23) Not Available [facility] 4 03:00:21 Abnormal auditory perceptio n 62909494 Active 2017 Other abnormal auditory perceptio ns, bilateral ; Note: Date Diagnosed : 8 11:00 AM (H93.293) Not Available [facility] 4 03:00:20 Bilateral tinnitus 55021574931 02 Active 2023 SERINA GRAYSON PA-C [address] [place] [address],[facility] [address], [place], [address] , [facility] - [facility] 4 12:49:46 Bilateral disorder of Eustachia n tubes 85958794578 50961 Active 2024 SERINA GRAYSON PA-C [address] [place], [address] , [facility] - [facility] 5 14:08:51 Pruritic disorder of skin Active 2024 SERINA GRAYSON PA-C [address] [facility],[facility] [address], [place], [address] , [facility] - [facility] 5 13:30:09 Problem Notes None recorded. Procedures Surgical History Date Name Laterality Status Provider Name and Address Organization Details Recorded Time 06/13/20 24 Air & Speech Audio with Tymps - 65225, 16072 & 24333 completed MENDEZ YOU MA, CCC-A [address], [place], [address], [facility] - [facility] 06/13/2024 12:40:25 06/13/20 24 Cerumen removal without microscope bilat completed SERINA GRAYSON PA-C [address] [facility] [address], [place], [address], [facility] - [facility] 06/13/2024 12:19:27 laminectomy completed Serina Ch [place] - [facility] 06/13/2024 11:50:38 colonoscopy completed Serina Ch [place] - [facility] 06/13/2024 11:53:07 Imaging Results None recorded. Procedure Notes None recorded. Medical Equipment None Reported. Allergies Allergen ID Allergen Name Allergen Category Reaction Reaction Severity Criticality Documentation Date Start Date Code Code System Note Provider Name and Address Organization Details Recorded Time 802318 ibuprofen medicatio n other Not available Not available 03/21/2024 5640 RxNorm React ion: unkno wn, unspe cifie d;; Not Available [facility] 4 01:14:11 989348 tramadol Not available other Not available Not available 03/21/2024 91816 RxNorm React ion: unkno wn, unspe cifie d;; Not Available [facility] 4 01:14:12 491121 penicilli n V potassium medicatio n other Not available Not available 03/21/202495880 5 RxNorm React ion: unkno wn, unspe cifie d;; Not Available [facility] 4 01:14:13 316160 Toradol medicatio n Not available Not available Not available 12/15/2024 76218 RxNorm Venita ford [place] - [facility] 5 13:28:07 Medications Name Sig Start Date Stop Date Status Note LastModified by Organization Details LastModified Time metformin 500 mg tablet TAKE 1 TABLET BY MOUTH TWICE DAILY WITH MEALS 12/15 completed Not Available Not Available Not Available atorvasta tin 20 mg tablet TAKE 1 TABLET BY MOUTH DAILY active Not Available Not Available No t Available atorvasta tin 10 mg tablet 06/22 completed Medicati on ID: [id number] D uration Value: 90 Brand Name: atorvast atin Sen d Method: E-Prescr ibed Sub s Allowed: subs OK Speci al Instruct ion: TK 1 T PO D Medica tionGene ricName: atorvast atin Not Available Not Available Not Available azithromy cam 250 mg tablet TK 2 TS PO ON DAY 1, THEN TK 1 T PO D FOR 4 DAYS 12/15 completed Not Available Not Available Not Available Claritin 10 mg tablet Take 1 tablet by mouth once a day 12/15 completed Medicati on ID: [id number] D uration Value: 30 Prescri bed By Name: Gianni Gilbert nd Name: Claritin Send Method: E-Prescr ibed Sub s Allowed: subs OK Medic ationGen ericName : Claritin Not Available Not Available Not Available FreeStyle Lancets 28 gauge TEST BLOOD GLUCOSE EVERY DAY active Not Available Not Available No t Available clindamyc in HCl 150 mg capsule TAKE 3 CAPSULES BY MOUTH THREE TIMES DAILY FOR 7 DAYS 12/15 completed Not Available Not Available Not Available amlodipin e 5 mg tablet TAKE 1 TABLET BY MOUTH AT BEDTIME active Not Available Not Available No t Available aspirin 81 mg tablet,de layed release TAKE 1 TABLET BY MOUTH DAILY active Not Available Not Available No t Available hydrocort isone 2.5 % topical cream with perineal applicato r APPLY FILM TOPICALL Y TO THE AFFECTED AREA TWICE DAILY active Not Available Not Available No t Available lorazepam 2 mg tablet TAKE 1 TABLET BY MOUTH 2 HOURS BEFORE MRI. MAY REPEAT 30 MINUTES BEFORE IF NEEDED 12/15 completed Not Available Not Available Not Available amlodipin e 10 mg tablet 06/22 completed Medicati on ID: [id number] D uration Value: 30 Brand Name: betito greco Send Method: E-Prescr ibed Sub s Allowed: subs OK Speci al Instruct ion: TK 1 T PO D Medica tionGene ricName: betito ne Not Available Not Available Not Available clotrimaz ole-betam ethasone 1 %-0.05 % topical cream APPLY TOPICALL Y TO THE AFFECTED AREA TWICE DAILY active Not Available Not Available No t Available hydroxyzi ne HCl 25 mg tablet active Not Available Not Available No t Available hydralazi ne 50 mg tablet TAKE 1 TABLET BY MOUTH THREE TIMES DAILY active Not Available Not Available No t Available mupirocin 2 % topical ointment APPLY TOPICALL Y TO THE AFFECTED AREA THREE TIMES DAILY FOR 10 DAYS active Not Available Not Available No t Available gabapenti n 100 mg capsule TAKE 1 CAPSULE BY MOUTH EVERY NIGHT 12/15 completed Not Available Not Available Not Available losartan 100 mg tablet TAKE 1 TABLET BY MOUTH DAILY active Not Available Not Available No t Available fluticaso ne propionat e 50 mcg/actua tion nasal spray,cait pension SHAKE WELL AND INSTILL 2 SPRAYS INTO EACH NOSTRIL EVERY DAY active Not Available Not Available No t Available fluocinol one acetonide oil 0.01 % ear drops INSTILL 2 DROPS IN AFFECTED EAR(S) TWICE A WEEK NEEDED FOR ITCHING active Not Available Not Available No t Available hydrochlo rothiazid e 12.5 mg tablet TAKE 2 TABLETS BY MOUTH DAILY active Not Available Not Available No t Available FreeStyle Lite Meter kit TEST BLOOD GLUCOSE EVERY DAY active Not Available Not Available No t Available FreeStyle Lite Strips USE TO TEST BLOOD SUGARS ONCE DAILY active Not Available Not Available No t Available Linzess 290 mcg capsule active Not Available Not Available Not Available Stimulant Laxative Plus 8.6 mg-50 mg tablet TAKE 1 TABLET BY MOUTH EVERY DAY 06/22 completed Not Available Not Available Not Available Trulicity 1.5 mg/0.5 mL subcutane ous pen injector ADMINIST ER 1.5 MG UNDER THE SKIN EVERY 7 DAYS active Not Available Not Available No t Available Trulicity 0.75 mg/0.5 mL subcutane ous pen injector ADMINIST ER 0.75 MG UNDER THE SKIN 1 TIME A WEEK 12/15 completed Not Available Not Available Not Available GenTeal Tears Moderate 0.1 %-0.3 %-0.2 % eye drops active Not Available Not Available No t Available Vitals Date Recorded Body height Body mass index (BMI) Body weight Provider Name and Address Organization Details Last Updated DateTime 12/15/2024 187.96 cm 47.5 kg/m2 085707.18 g Venita Lee [place] - [facility] 12/15/2024 13:28:02 Date Recorded Body height Body mass index (BMI) Body weight Provider Name and Address Organization Details Last Updated DateTime 06/13/2024 187.96 cm 47.8 kg/m2 004668.36 g Serina Ch [place] - [facility] 06/13/2024 12:05:24 Date Recorded Body height Provider Name an d Address Organization Details Last Updated DateTime 06/22/2025 187.96 cm MICHAELLE DIVYA [place] - [facility] 06/22/2025 13:07:07 Social History None recorded. Functional Status Question Answer Note LastModified by Organization D etails LastModified Time What is your level of alcohol consumption? None [email or web address] Information not available 06/22/2025 Mental Status None recorded. Family History Nothing Reported. Medical History Condition Response Allergies/Hayfever Y Heart Problems Y Anxiety Y Tonsil Infections N Emphysema N Migraines N Thyroid Problems N Depression Y COPD N Developmental Delay N Glaucoma N Nasal or Sinus Problems N Anemia N Immune System Disorder N Anesthesia Complications N Heart Attack ([place]) N Other Skin Condition N Diabetes Y Rhinitis N Bleeding Disorder N Food Allergy Y Hearing Loss N Arthritis Y Hyperlipidemia N Cancer N Stroke N Dementia N Nasal polyps N Asthma N Sleep Disorder N High Cholesterol Y GERD/Reflux N Liver Disease N Headaches N Fibromyalgia N Hypertension Y Speech Delay N Kidney Disease N Past Encounters Encounter ID Performer Location Encounter Start Date Encounter Closed Date Diagnosis/Indication Diagnosis SNOMED-CT Code Diagnosis ICD10 Code Diagnosis IMO Codes Diagnosis Note [id number] SERINA GRAYSON PA-C [facility] [address] [address] 06/13/2024 11:15:43 06/13/2024 12:47:29 Abnormal auditory perception 64809037 H93.293 Impacted c erumen of bilateral ears 9414492682 644188 H61.23 Bilateral tinnitus 68144 34760 102 H93.13 [id number] MENDEZ YOU MA, CCC-A [facility] [address] [address] 06/13/2024 12:39:56 06/14/2024 07:47:23 Abnormal auditory perception 90989239 H93.293 Audiologic al evaluation results: Right ear: Normal hearing with excellent word recognitio n. Left ear: Normal hearing with excellent word recognitio n. Tympanomet ry: Right Ear:Type Ad Left Ear:Type Ad [id number] SERINA GRAYSON PA-C [facility] [address] [address] 12/15/2024 13:14:41 12/15/2024 13:52:36 Bilateral disorder of Eustachian tubes 8014511742 318823 H69.93 [id number] SERINA GRAYSON PA-C [facility] [address] [address] 06/22/2025 13:01:01 06/22/2025 13:48:24 Pruritic disorder of skin 2775943032 L29.9 04626 Health Concerns Section Related Observation LastModified by Organization Detai ls LastModified Time None Recorded Concern Status LastModified by Organization Details LastModified Time None Recorded Advance Directives Directive None Recorded Payers Insurance Date Sequence Insurance Name Policy Number Policy Pantoja Covered Member ID Pantoja Member ID Guarantor Name 12/15/2024 1 [place] [employer] Wallace D Seal [id number] Wallace Seal 06/22/2025 2 [place] Wallace D Seal [id number] Wallace Seal 06/22/2025 1 [facility] (MEDICARE REPLACEMENT/A DVANTAGE - HMO) Wallace D Seal [id number] Wallace Seal Notes Date Note Type Note Provider Name and Address Organization Details Recorded Time 06/13/2024 text/html ROS as noted in the HPI 59-year-old male presents for evaluation of tinnitus. Initially he was having bilateral tinnitus which has since resolved. He believes it was related to cerumen impaction. Feels his hearing is normal. Does not report vertigo. KENNETH JEWELL [facility],[address], [address], [facility] - [facility] 06/13/2024 12:50:45 12/15/2024 text/html ROS as noted in the HPI 59-year-old male presents for cerumen removal. He did have a sinus infection about 2 weeks ago which cleared without antibiotic. His right ear has been full since then without pain or drainage. KENNETH JEWELL [facility],[address], [address], [facility] - [facility] 12/15/2024 14:09:08 06/22/2025 text/html ROS as noted in the [facility] Patient presents for ear itching. History of cerumen impaction. Denies instrumentation of the ears. Frequently has seasonal allergies which makes itching worse. KENNETH JEWELL [facility],[address], [address], [facility] 06/22/2025 13:31:50
== END 2025-08-29 13:40 | disposition home or self-care (01) ==
LOC: HO.XRAY 13:39
PROVIDERS: PCP Internal Medicine; Referring Provider Internal Medicine; Visit Provider Registered Nurse
DX: M54.16 Radiculopathy, lumbar region (principal); M50.90 Cervical disc disorder, unspecified, unspecified cervical region
CPT/HCPCS: 72050

== ENCOUNTER 2025-08-29 13:39 | Outpatient (AMB) | payer OTHER, MEDICARE, SELFPAY ==
--- OUTSIDE RECORDS SUMMARY | 2025-08-21 05:30 | XMS_ITS ---
Author Organization [facility] ayesha Brisbin Address [address] [place] [address] Care Team Providers Care Rental Salesperson Name Role Phone Juan Angeles Primary Care Provider Unavailabl e Black, Janay Unavailable [phone] Allergies Allergen (clinical drug ingredient) Drug/Non Drug Allergy documented on EMR Reaction Allergy Type Onset Date Status ibuprofen Advil hives Drug Allergy Active Aleve hives Drug Allergy Active Motrin hives Drug Allergy Active Penicillin hives Drug Allergy Active Medications Medication SIG (Take, Route, Frequency, Duration) Notes Start Date End Date Status hydrALAZINE HCl 100 MG 1 tablet with jessika d Orally Twice a day Active amLODIPine Besylate 10 MG 1 tablet Orall y Once a day Active Atorvastatin Calcium 20 MG 1 tablet Oral ly Once a day Active hydroCHLOROthiazide Active Aspirin 81 81 MG 1 tablet Orally Once a day Active Losartan Potassium 50 MG 1 tablet Orally Once a day Active Social History Tobacco Use: Social History Observation Description Date Details (start date - stop date) Never Smoker NA - NA Tobacco use other than smoking: Question Answer Notes Are you an other tobacco user? No Tobacco Control (Standard) Question Answer Notes Tobacco use: Nonsmoker AUDIT-C (Standard) Question Answer Notes Did you have a drink contain ing alcohol in the past year? Yes How often did you have a dri nk containing alcohol in the past year? Monthly or less (1 point) How many drinks did you have on a typical day when you were drinking in the past year? 1 or 2 drinks (0 point) How often did you have six o r more drinks on one occasion in the past year? Never (0 point) Points 1 Interpretation Negative Encounters Encounter Location Date Provider [facility] [address] [facility] [address] 08/21/2025 Janay Cavazos Plan Of Treatment No Information Progress Notes * Wallace KAY DDOB:1965 ([age] yo M)Acc No.[id number]:08/21/2025 Progress Notes Patient: Wallace TERAN D Provider: Bekah Cavazos DPM :1965 A ge:60 Y S ex:Male Date:08/21/2025 Address:[address] [place], [place] [id number] Pcp:Juan Angeles Subjective: * Chief Complaints: * * ROS: G eneral/Constitutional: Nausea d enies. V omiting d enies. H jovanni Thirst d enies. L oss appetite d enies. C hills d enies. F atigue d enies.?Fever d enies. N ight Sweats d enies. U nexplained weight loss d enies. U nexplained weight gain a dmits. H EENTM: Dentures d enies. D izziness d enies. G lasses/contacts a dmits. R etinopathy d enies. B lurred/double vision d enies. T MJ?denies. D ischarge/drainage d enies. I mplants d enies. S ore throat d enies. D ental implants d enies. H kandi of hearing d enies. D ifficulty chewing/swallowing/speaking d enies. N ose bleeds d enies. S ore mouth d enies. ? R espiratory: On Oxygen d enies. P neumonia/pleurisy d enies.?Bronchitis d enies. E mphysema d enies. C oughing d enies. C ough blood?denies. S hortness of breath d enies. W heezing d enies. C ardiovascular: Pacemaker d enies. M IRRIGATIONIST d enies. W PW d enies. C HF d enies. H eart attack a dmits. S eptal defect d enies. R apid beat d enies. C hest pain d enies. A trial Fib. d enies. M urmur/Palpitations d enies. G astrointestinal: Hemorrhoids d enies. S tomach/Abdominal pain d enies. D ark blood stool d enies. I rritable bowel d enies. C onstipation a dmits. D iarrhea d enies. H ematology: Swelling d enies. C lots d enies. V aricose Veins d enies. B ruising d enies. B leeding problem d enies. G enitourinary: Blood urine d enies. F requent/Painfu/urination/bladder control d enies. K idney stones d enies. I nfection (UTI) d enies. N ephropathy a dmits. s ex trans dis (STD) d enies. P rostate d enies. M usculoskeletal: Hammertoes d enies. B unions d enies. B ack Pain a dmits. M uscle Cramps/ Resting d enies. M uscle cramps / walking d enies.?Generalized aches and pains a dmits. W eakness d enies. I nteg.: Stevens d enies. S cars d enies. C orns/calluses?denies. I ngrown nails a dmits. P ainful nails d enies. O pen Sores d enies. R ashes d enies. N eurologic: Difficulty sleeping a dmits. B rain disorder d enies. N umbness a dmits. B alance trouble d enies. C onfusion d enies. F ainting/blackouts d enies. T ingling a dmits. T remors d enies. * Medical History: A nxiety, Back,Hip,and Knee pain, Depression, Diabetic, Heart disease, High Blood Pressure, Numbness. * Family History: M other: , diagnosed with Diabetic - NIDDM, Unspecified essential hypertension, Unspecified cerebral artery occlusion with cerebral infarction, Family history of arthritis. F ather: , diagnosed with Diabetic - NIDDM. * Social History: T obacco Use: T obacco use other than smoking A re you an other tobacco user? N o Tobacco Control (Standard) T obacco use: N onsmoker D rugs/Alcohol: D rugs H ave you used drugs other than those for medical reasons in the past 12 months? N o M iscellaneous: C affeine: no. Children: yes. Exercise: no. Marital status: Single, single. Occupation: Unemployed,. D rug/Alcohol: A ADAM-C (Standard) D id you have a drink containing alcohol in the past year? Y es H ow often did you have a drink containing alcohol in the past year? M onthly or less (1 point) H ow many drinks did you have on a typical day when you were drinking in the past year? 1 or 2 drinks (0 point) H ow often did you have six or more drinks on one occasion in the past year? N ever (0 point) P oints 1 I nterpretation N egative * Medications: T aking hydroCHLOROthiazide , Taking Aspirin 81 81 MG Tablet Delayed Release 1 tablet Orally Once a day , Taking Losartan Potassium 50 MG Tablet 1 tablet Orally Once a day , Taking amLODIPine Besylate 10 MG Tablet 1 tablet Orally Once a day , Taking hydrALAZINE HCl 100 MG Tablet 1 tablet with food Orally Twice a day , Taking Atorvastatin Calcium 20 MG Tablet 1 tablet Orally Once a day * Allergies: P enicillin: hives - Allergy, Advil: hives - Allergy, Aleve: hives - Side Effects, Motrin: hives - Side Effects. Objective: * Vitals: Assessment: Plan: * Treatment: * Images: * The named appointment provid er may or may not be the originator of this progress note, and it is not deemed complete until electronically signed by the appointment provider. Sign off status: Pending * Provider: Bekah Cavazos DPM Date: Generated for Erik cho/Marleny/Mario on: 07:25 PM EDT
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
--- OUTSIDE RECORDS SUMMARY | 2025-08-29 19:26 | XMS_ITS | Encounter Summary ---
Author Organization [facility] [place] [address] Care Team Providers Care Loan Expeditor Name Role Phone Juan Rogers MD Primary Care Provider [phone] Encounter Details Date Type Department Care Team (Late Contact Info) Description 08/17/2025 Results Follow-Up Endocrinology - [address] [phone] Oliva Gray MD [address] [place] [id number] Social History Tobacco Use Types Packs/Day Years [...] on file documented as of this encounter Plan of Treatment Upcoming Encounters Date Type Department Care Team (Late Contact Info) Description 09/27/2025 2:15 PM EST Office Visit Orthopedic Surgery - [place] [address] [id number] Zi Tadeo, DPEmma [address] [address] documented as of this encounter Visit Diagnoses Not on filedocumented in this encounter Care Teams Loan Expeditor Relationship Specialty Start Date End Date Juan Rogers MD [address] [place] [id number] PCP - General Internal Medicine 09/12/24 documented as of this encounter
--- OUTSIDE RECORDS SUMMARY | 2025-08-29 19:26 | XMS_ITS | Clinical Summary ---
Author Organization [place] [address] [facility] Building Address [address] [place] [phone] Phone Care Team Providers Care Knife Cutter Name Role Phone Juan Rogers MD Primary Care Provider [phone] Allergies Active Allergy Reactions Criticality Noted Date Comments Ibuprofen 06/02/2013 Aspartame-Fd&C Yellow #6-Ibuprofen: Other Reaction(s): Hives/Urticaria Ketorolac 02/27/2010 Other Reaction(s): Hives/Urticaria Penicillin G Potassium 12/09/2005 Tramadol 10/01/2014 rash Medications blood glucose control high,low (FreeStyle Control) solution 1 Each by In Vitro route daily. 4 Active peg 400-hypromellose -glycerin (Dry Eye Relief) 1-0.2-0.2 % drops apply 1 Drop to the eye at bedtime as needed (dry eyes). 4 Active hydrocortisone (ANUSOL-HC) 2.5 % rectal cream Apply 1 Film topically 2 times daily. 4 Active mupirocin (BACTROBAN) 2 % ointment Apply topically 2 (two) times a day. For 7 days then once daily for 2-3 weeks 22 g 4 Active freestyle (FreeStyle Lancets) 28 gauge lancets Use to test blood sugar once daily dxe11.9 100 each 3 4 Active clotrimazole-bet amethasone (LOTRISONE) 1-0.05 % cream Apply 1 Application topically 2 (two) times a day. APPLY TO AFFECTED AREA 30 g 1 5 Active fluticasone propionate (FLONASE) 50 mcg/actuation nasal spray SHAKE WELL AND INSTILL 2 SPRAYS INTO EACH NOSTRIL EVERY DAY 48 g 5 Active hydrOXYzine HCL (ATARAX) 25 mg tablet TAKE 1 TABLET(25 MG) BY MOUTH THREE TIMES DAILY NEEDED FOR ANXIETY 90 tablet 1 5 Active dulaglutide (Trulicity) 1.5 mg/0.5 mL pen injector injectionIndicat ions:New onset type 2 diabetes mellitus (CMS/[facility] V24, CMS/[facility] V28) Inject 0.5 mL (1.5 mg total) under the skin every 7 (seven) days. 6 mL 1 5 Active blood sugar diagnostic (FreeStyle Lite Strips) test stripIndications :New onset type 2 diabetes mellitus (CMS/HCC V24, CMS/[facility] V28) Use to test blood sugar once daily dxe11.9 100 each 3 5 Active Linzess 290 mcg capsule Take 1 capsule (290 mcg total) by mouth 1 (one) time each day before breakfast. 90 each 1 5 11/05/20 25 Active hydrALAZINE (APRESOLINE) 50 mg tablet Take 1.5 tablets (75 mg total) by mouth 3 (three) times a day. 360 tablet 1 5 Active amLODIPine (NORVASC) 5 mg tablet TAKE 1 TABLET(5 MG) BY MOUTH 1 TIME EACH DAY AT BEDTIME 90 tablet 5 Active atorvastatin (LIPITOR) 20 mg tablet TAKE 1 TABLET(20 MG) BY MOUTH 1 TIME EACH DAY 90 tablet 5 Active hydroCHLOROthiaz tristan 12.5 mg tablet Take 2 tablets (25 mg total) by mouth 1 (one) time each day. 180 tablet 1 5 Active aspirin 81 mg EC tablet TAKE 1 TABLET BY MOUTH DAILY. APPOINTMENT DUE SOONER FOR ANY REFILLS, PLEASE CALL OFFICE TO SCHEDULE 90 tablet 5 Active losartan (COZAAR) 100 mg tablet Take 1 tablet (100 mg total) by mouth 1 (one) time each day. 90 tablet 3 5 Active LORazepam (Ativan) 0.5 mg tabletIndication s:Low testosterone Take 1 tablet half an hour before the scan and another at the time of the scan 2 tablet 5 Active Active Problems Problem Noted Date Diagnosed Date [...] modifications. Obstructive sleep apnea 11/14/2018 [place] (08/28/[place]24[place] [facility] [place]: Date 11/06/2018; Wt 302# SE 36%; [...] New onset type 2 diabetes me llitus ([facility] V24, [facility] V28) 02/16/2018 Overview (08/28/2024): A1c 6.1 on [...] again. NSTEMI (non-ST elevated myoc ardial infarction) ([facility] V24, [facility] V28) 2016 Overview (08/28/2024): Negative cath 12/2015 Dr. Butler, [facility] Assessment & Plan (10/27/2024 2:17 PM EST): [...] of recurrent disc herniation or postoperative complications. O update Encounters Date Type Department Care Team Description 08/28/2025 Results Follow-Up [facility] - [address] [phone] Oliva Gray MD 08/22/2025 2:15 PM EDT Office Visit [address] [phone] Oliva Gray MD Low testosterone (Primary Dx) 08/17/2025 Results Follow-Up [address] [phone] Oliva Gray MD 08/16/2025 3:15 PM EDT Procedure visit Orthopedic Surgery - [place] [address] [facility] [address] [place] [address] Zi Tadeo DPM Controlled type 2 diabetes with neuropathy (CMS/HCC V24, CMS/HCC V28) (Primary Dx); Pain in toes of both feet; Ingrown nail of great toe 08/07/2025 12:51 PM EDT - 08/07/2025 11:59 PM EDT Hospital Encounter [facility] Ultrasound [address] [place] [phone] Low testosterone Discharge Disposition: Home or Self Care 08/06/2025 1:37 PM EDT - 08/06/2025 11:59 PM EDT Hospital Encounter Radiology Department - [address] [phone] Breast lump; Unspecified lump in left breast, subareolar Discharge Disposition: Home or Self Care 08/06/2025 1:35 PM EDT - 08/06/2025 11:59 PM EDT Hospital Encounter Radiology Department - [address] [phone] Gynecomastia Discharge Disposition: Home or Self Care 08/06/2025 Results [facility] [address] [place] [phone] Juan Rogers MD 08/03/2025 Telephone Orthopedic Surgery [facility] [address] [phone] Judy Ovalles 08/03/2025 Telephone Endocrinology - [address] [phone] Oliva Gray MD 07/25/2025 1:15 PM EDT Consult Orthopedic [facility] [address] [phone] Zi Tadeo, ADRIÁN Controlled type 2 diabetes with neuropathy (CMS/HCC V24, CMS/HCC V28) (Primary Dx); Pain in toes of both feet; Ingrown nail of great toe 07/12/2025 Telephone Endocrinology - [address] [phone] Oliva Gray MD 07/02/2025 11:30 AM EDT Consult Endocrinology - [address] [phone] Oliva Gray MD Gynecomastia (Primary Dx); Low testosterone 06/11/2025 3:45 PM EDT [facility] [address] [facility] [place] [phone] Darrell Small PA Ingrown nail of great toe (Primary Dx) from Last 3 Months Immunizations Immunization Administration Dates Next Due Hepatitis B (Jdlxtxb-Q-Rwoil , Recombivax HB-Adult) 19yo and older 03/26/2021,11/22/2020,10/23/2020 [...] New onset type 2 diabetes me llitus (CMS/HCC V24, CMS/HCC V28) DX:New onset type 2 diabete s mellitus (HCC) NSTEMI (non-ST elevated myoc ardial infarction) (CMS/HCC V24, CMS/HCC V28) 2016 DX:NSTEMI (non-ST elevated m yocardial infarction) ([facility]); COMMENT: Negative cath 12/2015 Dr. Butler, [facility] Coronary artery disease 08/29/2021 DX:Coron dinesh artery [...] Sign Reading Time Taken Comments Blood Pressure 134/83 08/22/2025 1:48 PM EDT Pulse 74 08/22/2025 1:48 PM EDT Temperature 36.4 C (97.6 F) 08/22/2025 1:48 PM EDT Respiratory Rate 14 08/22/2025 1:48 PM EDT Oxygen Saturation 95% 07/02/2025 11:21 AM EDT Inhaled Oxygen Concentration - - Weight 170 kg (375 lb) 08/22/2025 1:48 PM EDT Height 188 cm (6' 2 ) 07/02/2025 11:21 AM EDT Body Mass Index 48.15 07/02/2025 11:21 AM EDT Plan of Treatment Upcoming Encounters Date Type Department Care Team (Late st Contact Info) Description 09/27/2025 2:15 PM EST Office Visit Orthopedic Surgery - [place] [address] [facility] [address] [place] [phone] Zi Tadeo DPM [address] [facility] [address] [place] [address] Health Maintenance Due Date Last Done Comments Pneumococcal Vaccine: 50+ Years (1 of 2 - PCV) 1986 RSV Immunization Adult Patients (1 - Risk 50-74 years 1-dose series) 2017 Zoster Vaccines (1 of 2) 2017 Medicare [...] Procedure Name Priority Date/Time Associated Diagnosis Comments EXTERNAL XRAY REPORT 08/29/2025 EXTERNAL XRAY REPORT 08/29/2025 ABO RH Routine 08/27/2025 4:13 PM EDT Low testosterone US HEAD NECK SOFT TISSUE Routine 08/07/2025 1:10 PM EDT Low testosterone US BREAST LIMITED LEFT Routine 08/06/2025 2:18 PM EDT Breast lump Unspecified lump in left breast, subareolar MG MAMMO DIGITAL DIAGNOSTIC W TRAVIS BILAT Routine 08/06/2025 2:06 PM EDT Gynecomastia ACTH Routine 07/06/2025 11:23 AM EDT Low [...] Routine 07/06/2025 11:23 AM EDT Low testosterone COMPREHENSIVE METABOLIC PANEL Routine 03/12/2025 11:52 AM [...] Recently Relevant to Health Maintenance Results * External Xray Report (08/29/2025) Only the most recent of2 resultswithin the time period is included. Anatomical Region Laterality Modality Radiographic Jennifer ging us Provider [facility] IMG XR PROCEDURES Final Result * ABO Rh (08/27/2025 4:13 PM EDT) ABO Group O 08/27/2025 7:31 PM EDT [facility] Rh Type Negative 08/27/2025 7:31 PM EDT [facility] Blood Venous blood specimen / Unknown Venipuncture / Unknown 08/27/2025 4:13 PM EDT 08/27/2025 4:13 PM EDT us Oliva Gray MD LAB BLOOD BANK TEST ORDERABLES F inal Result [facility]) [facility] [address] [place] [address], [place] [phone] * US Head Neck Soft Tissue (08/07/2025 1:10 PM EDT) Anatomical Region Laterality Modality Head and Neck Ultrasound 08/16/2025 4:06 PM EDT Impressions 08/16/2025 4:07 PM EDT No suspicious thyroid nodule. Composition: cystic or spongiform: 0 pt mixed cystic and solid: 1 pt solid or almost completely solid: 2 pts Echogenicity: anechoic: 0 pt hyperechoic or isoechoic: 1 pt hypoechoic: 2 pts very hypoechoic: 3 pt Shape: wider than tall: 0 pt taller than wide: 3 pts Margin: smooth: 0 pt ill-defined: 0 pt lobulated/irregular: 2 pts extra-thyroidal extension: 3 pts Echogenic foci none or large comet tail artifact: 0 pt macro-calcification: 1 pt peripheral/rim ca++: 2 pts punctate echogenic foci: 3 pts TR1: 0 pts; benign; no follow-up TR2: 2 pts; not suspicious; no FNA TR3: 3 pts; mildly suspicious; < or = 1.5 cm f/u; > or = 2.5 cm FNA TR4: 4-6 pts; moderately suspicious; < or = 1.0 cm follow-up; 1.5 cm FNA TR5: 7 or > pts; highly suspicious; .5-.9 cm f/u; 1.0 cm or > FNA -------- FINAL REPORT -------- Dictated By: Ashkan Suggs Dictated Date: 08/16/2025 16:06 ET Assigned Physician: Ashkan Suggs Reviewed and Electronically Signed By: Ashkan Suggs Signed Date: 08/16/2025 16:07 ET Workstation ID: [id number] Transcribed By: Self Edit Transcribed Date: 08/16/2025 16:06 ET Narrative 08/16/2025 4:07 PM EDT HISTORY: Clinical concern for thyroid nodule. Abnormal serum testing. TECHNIQUE: Grayscale assessment of the thyroid was performed with a high frequency linear transducer. COMPARISON: None FINDINGS: Measurements: RIGHT LOBE: Current 4.7 x 1.8 x 1.8 cm Previous measurement: No previous available LEFT LOBE : Current 3.6 x 1.5 x 1.6 cm Previous measurement: No previous available ISTHMUS (AP): Current 0.7 cm Previous measurement: No previous available Gland contour: Smooth Background echogenicity: Homogeneous Background vascularity: Normal Masses: No suspicious masses OTHER: Extrathyroidal extension: None Regional lymph nodes: No enlarged lymph nodes demonstrated Procedure Note Ashkan Suggs MD - 08/16/2025 HISTORY: Clinical concern for thyroid nodule. Abnormal serum testing. TECHNIQUE: Grayscale assessment of the thyroid was performed with a highfrequency linear transducer. COMPARISON: None FINDINGS: Measurements: RIGHT LOBE: Current 4.7 x 1.8 x 1.8 cm Previous measurement: No previous available LEFT LOBE : Current 3.6 x 1.5 x 1.6 cm Previous measurement: No previous available ISTHMUS (AP): Current 0.7 cm Previous measurement: No previous available Gland contour: Smooth Background echogenicity: Homogeneous Background vascularity: Normal Masses: No suspicious masses OTHER: Extrathyroidal extension: None Regional lymph nodes: No enlarged lymph nodes demonstrated IMPRESSION: No suspicious thyroid nodule. Composition: cystic or spongiform: 0 pt mixed cystic and solid: 1 pt solid or almost completely solid: 2 pts Echogenicity: anechoic: 0 pt hyperechoic or isoechoic: 1 pt hypoechoic: 2 pts very hypoechoic: 3 pt Shape: wider than tall: 0 pt taller than wide: 3 pts Margin: smooth: 0 pt ill-defined: 0 pt lobulated/irregular: 2 pts extra-thyroidal extension: 3 pts Echogenic foci none or large comet tail artifact: 0 pt macro-calcification: 1 pt peripheral/rim ca++: 2 pts punctate echogenic foci: 3 pts TR1: 0 pts; benign; no follow-up TR2: 2 pts; not suspicious; no FNA TR3: 3 pts; mildly suspicious; < or = 1.5 cm f/u; > or = 2.5 cm FNA TR4: 4-6 pts; moderately suspicious; < or = 1.0 cm follow-up; 1.5 cm FNA TR5: 7 or > pts; highly suspicious; .5-.9 cm f/u; 1.0 cm or > FNA -------- FINAL REPORT -------- Dictated By: Ashkan Suggs Dictated Date: 08/16/2025 16:06 ET Assigned Physician: Ashkan Suggs Reviewed and Electronically Signed By: Ashkan Suggs Signed Date: 08/16/2025 16:07 ET Workstation ID: [id number] Transcribed By: Self Edit Transcribed Date: 08/16/2025 16:06 ET us Oliva Gray MD IMG US PROCEDURES Final Result * US Breast Limited Left (08/06/2025 2:18 PM EDT) Anatomical Region Laterality Modality Breast Left Ultrasound 08/06/2025 2:38 PM EDT Impressions 08/06/2025 2:48 PM EDT Findings of unilateral left gynecomastia. Further management should be clinically based. BREAST DENSITY: A - The breasts are almost entirely fatty. BI-RADS CATEGORY: 2 - BENIGN RECOMMENDATION: Clinical management of left breast is recommended. MAMMO LOCATION: [facility], [address] [place] [address], [phone], . -------- FINAL REPORT -------- Dictated By: Gini Jones Dictated Date: 08/06/2025 14:38 ET Assigned Physician: Gini Jones Reviewed and Electronically Signed By: Gini Jones Signed Date: 08/06/2025 14:48 ET Workstation ID: [id number] Transcribed By: Self Edit Transcribed Date: 08/06/2025 14:38 ET Narrative 08/06/2025 2:48 PM EDT EXAM: MG MAMMO DIGITAL DIAGNOSTIC W TRAVIS BILAT, US BREAST LIMITED LEFT HISTORY: Palpable tender retroareolar lump on the left. COMPARISON: NONE TECHNIQUE: Bilateral mediolateral oblique and craniocaudal views were obtained digitally with 3-D mammogram (digital breast tomosynthesis). Computer-aided detection was utilized in evaluation of this exam (CAD). FINDINGS: On the left, fan-shaped density in the retroareolar breast extending posteriorly where it blends into the surrounding fat. It is more prominent in upper outer quadrant. Targeted sonography in the retroareolar left breast shows a corresponding nodular hypoechoic area which is in the region of the palpable lump as delineated by the patient. Mammographic and sonographic findings have features of gynecomastia. Normal mammographic appearance of the right breast. Procedure Note Gini Jones MD - 08/06/2025 EXAM: MG MAMMO DIGITAL DIAGNOSTIC W TRAVIS BILAT, US BREAST LIMITED LEFT HISTORY: Palpable tender retroareolar lump on the left. COMPARISON: NONE TECHNIQUE: Bilateral mediolateral oblique and craniocaudal views wereobtained digitally with 3-D mammogram (digital breast tomosynthesis).Computer-aided detection was utilized in evaluation of this exam (CAD). FINDINGS: On the left, fan-shaped density in the retroareolar breast extendingposteriorly where it blends into the surrounding fat. It is moreprominent in upper outer quadrant. Targeted sonography in theretroareolar left breast shows a corresponding nodular hypoechoic areawhich is in the region of the palpable lump as delineated by the patient.Mammographic and sonographic findings have features of gynecomastia. Normal mammographic appearance of the right breast. IMPRESSION: Findings of unilateral left gynecomastia. Further management should beclinically based. BREAST DENSITY: A - The breasts are almost entirely fatty. BI-RADS CATEGORY: 2 - BENIGN RECOMMENDATION: Clinical management of left breast is recommended. MAMMO LOCATION: [facility], [address] [place] [address], [phone], . -------- FINAL REPORT -------- Dictated By: Gini Jones Dictated Date: 08/06/2025 14:38 ET Assigned Physician: Gini Jones Reviewed and Electronically Signed By: Gini Jones Signed Date: 08/06/2025 14:48 ET Workstation ID: [id number] Transcribed By: Self Edit Transcribed Date: 08/06/2025 14:38 ET us Juan Rogers MD IMG US PROCEDURES Final Result * MG Mammo Digital Diagnostic w Travis bilat (08/06/2025 2:06 PM EDT) Anatomical Region Laterality Modality Breast Bilateral Mammography 08/06/2025 2:38 PM EDT Impressions 08/06/2025 2:48 PM EDT Findings of unilateral left gynecomastia. Further management should be clinically based. BREAST DENSITY: A - The breasts are almost entirely fatty. BI-RADS CATEGORY: 2 - BENIGN RECOMMENDATION: Clinical management of left breast is recommended. MAMMO LOCATION: [facility], [address] [place] [address], [phone], . -------- FINAL REPORT -------- Dictated By: Gini Jones Dictated Date: 08/06/2025 14:38 ET Assigned Physician: Gini Jones Reviewed and Electronically Signed By: Gini Jones Signed Date: 08/06/2025 14:48 ET Workstation ID: [id number] Transcribed By: Self Edit Transcribed Date: 08/06/2025 14:38 ET Narrative 08/06/2025 2:48 PM EDT EXAM: MG MAMMO DIGITAL DIAGNOSTIC W TRAVIS BILAT, US BREAST LIMITED LEFT HISTORY: Palpable tender retroareolar lump on the left. COMPARISON: NONE TECHNIQUE: Bilateral mediolateral oblique and craniocaudal views were obtained digitally with 3-D mammogram (digital breast tomosynthesis). Computer-aided detection was utilized in evaluation of this exam (CAD). FINDINGS: On the left, fan-shaped density in the retroareolar breast extending posteriorly where it blends into the surrounding fat. It is more prominent in upper outer quadrant. Targeted sonography in the retroareolar left breast shows a corresponding nodular hypoechoic area which is in the region of the palpable lump as delineated by the patient. Mammographic and sonographic findings have features of gynecomastia. Normal mammographic appearance of the right breast. Procedure Note Gini Jones MD - 08/06/2025 EXAM: MG MAMMO DIGITAL DIAGNOSTIC W TRAVIS BILAT, US BREAST LIMITED LEFT HISTORY: Palpable tender retroareolar lump on the left. COMPARISON: NONE TECHNIQUE: Bilateral mediolateral oblique and craniocaudal views wereobtained digitally with 3-D mammogram (digital breast tomosynthesis).Computer-aided detection was utilized in evaluation of this exam (CAD). FINDINGS: On the left, fan-shaped density in the retroareolar breast extendingposteriorly where it blends into the surrounding fat. It is moreprominent in upper outer quadrant. Targeted sonography in theretroareolar left breast shows a corresponding nodular hypoechoic areawhich is in the region of the palpable lump as delineated by the patient.Mammographic and sonographic findings have features of gynecomastia. Normal mammographic appearance of the right breast. IMPRESSION: Findings of unilateral left gynecomastia. Further management should beclinically based. BREAST DENSITY: A - The breasts are almost entirely fatty. BI-RADS CATEGORY: 2 - BENIGN RECOMMENDATION: Clinical management of left breast is recommended. MAMMO LOCATION: [facility], [address] [place] [address], [phone], . -------- FINAL REPORT -------- Dictated By: Gini Jones Dictated Date: 08/06/2025 14:38 ET Assigned Physician: Gini Jones Reviewed and Electronically Signed By: Gini Jones Signed Date: 08/06/2025 14:48 ET Workstation ID: [id number] Transcribed By: Self Edit Transcribed Date: 08/06/2025 14:38 ET us Oliva Gray MD IMG BI PROCEDURES Final Result * (ABNORMAL) Hemoglobin and hematocrit (07/06/2025 11:23 AM EDT) Hemoglobin 13.4(L) 13.5 - 17.5 g/dL LAB HEMETOLOGY METHOD 07/06/2025 12:45 PM EDT [facility] Hematocrit 40.3(L) 42.0 - 54.0 % LAB HEMETOLOGY METHOD 07/06/2025 12:45 PM EDT [facility] Blood Venous blood specimen / Unknown Venipuncture / Unknown 07/06/2025 11:23 AM EDT 07/06/2025 12:37 PM EDT us Oliva Gray MD LAB BLOOD ORDERABLES Final Resul t [facility] [address] [place] [address], [place] [phone] * Prolactin (07/06/2025 11:23 AM EDT) Prolactin 7.60 2.50 - 17.40 ng/mL LAB CHEMISTRY METHOD 07/06/2025 1:44 PM EDT [facility] Blood Venous blood specimen / Unknown Venipuncture / Unknown 07/06/2025 11:23 AM EDT 07/06/2025 12:36 PM EDT Oliva Gray MD LAB BLOOD ORDERABLES Final Resul t Performing Organization Address City/[facility]/ZIP Co de Phone Number [facility] [address] [place] [address], [place] [phone] * Insulin-like growth factor (07/06/2025 11:23 AM EDT) Insulin-like Growth Factor 1 116 68 - 247 ng/mL 07/10/2025 5:32 PM EDT [facility] Comment: Test performed at [facility], [address] , [place] [address] Irais Lantigua MD, PhD - Insurance Risk Manager Blood Venous blood specimen / Unknown Venipuncture / Unknown 07/06/2025 11:23 AM EDT 07/06/2025 12:36 PM EDT Oliva Gray MD LAB BLOOD ORDERABLES Final Resul t [facility] [address] [place] [address] * ACTH (07/06/2025 11:23 AM EDT) Adrenocorticotropic Hormone (ACTH) 21 <=46 pg/mL 07/10/2025 10:51 AM EDT [facility] Comment: Test performed at [facility], [address], [place] [address] Irais Lantigua MD, PhD - Insurance Risk Manager Blood Venous blood specimen / Unknown Venipuncture / Unknown 07/06/2025 11:23 AM EDT 07/06/2025 12:36 PM EDT us Oliva Gray MD LAB BLOOD ORDERABLES Final Resul t [facility] [address] [place] [address] * (ABNORMAL) Testosterone, total (07/06/2025 11:23 AM EDT) Testosterone 175(L) 229 - 902 ng/dL LAB CHEMISTRY METHOD 07/06/2025 2:19 PM EDT [facility] Blood Venous blood specimen / Unknown Venipuncture / Unknown 07/06/2025 11:23 AM EDT 07/06/2025 12:36 PM EDT us Oliva Gray MD LAB BLOOD ORDERABLES Final Resul t [facility] [address] [place] [address], * Luteinizing hormone (07/06/2025 11:23 AM EDT) Luteinizing Hormone 5.6 1.2 - 10.6 mIU/mL LAB CHEMISTRY METHOD 07/06/2025 1:44 PM EDT [facility] Blood Venous blood specimen / Unknown Venipuncture / Unknown 07/06/2025 11:23 AM EDT 07/06/2025 12:36 PM EDT us Oliva Gray MD LAB BLOOD ORDERABLES Final Resul t Performing Organization Address [facility]/ZIP Co de Phone Number [facility] [address] [place] [address], [place] [phone] * Follicle stimulating hormone (07/06/2025 11:23 AM EDT) Follicle Stimulating Hormone 3.9 0.7 - 10.8 mIU/mL LAB CHEMISTRY METHOD 07/06/2025 1:44 PM EDT [facility] Blood Venous blood specimen / Unknown Venipuncture / Unknown 07/06/2025 11:23 AM EDT 07/06/2025 12:36 PM EDT us Oliva Gray MD LAB BLOOD ORDERABLES Final Resul t Performing Organization Address [facility] Co de Phone Number [facility] [address] [place] [address], [place] [phone] * Cortisol (07/06/2025 11:23 AM EDT) Cortisol 9.3 mcg/dL LAB CHEMISTRY METHOD 07/06/2025 2:18 PM EDT [facility] Blood Venous blood specimen / Unknown Venipuncture / Unknown 07/06/2025 11:23 AM EDT 07/06/2025 12:36 PM EDT Narrative [facility] - 07/06/2025 2:18 PM EDT CORTISOL REFERENCE RANGE 8 AM SPEC: 5.0-23.0 mcg/dL 4 PM SPEC: 3.0-16.0 mcg/dL 8 PM SPEC: <5.0 mcg/dL us Oliva Gray MD LAB BLOOD ORDERABLES Final Resul t Performing Organization Address City/[facility]/ZIP Co de Phone Number [facility] [address] [place] [address], [place] [phone] * (ABNORMAL) Lipid panel with reflex to direct LDL (03/12/2025 11:52 AM EDT) Cholesterol 119 0 - 200 mg/dL LAB CHEMISTRY METHOD 03/12/2025 3:35 PM EDT [facility] Triglycerides 127 0 - 150 mg/dL LAB CHEMISTRY METHOD 03/12/2025 3:35 PM EDT [facility] HDL 38(L) >=40 mg/dL LAB CHEMISTRY METHOD 03/12/2025 3:35 PM EDT [facility] LDL Calculated 56 0 - 100 mg/dL LAB CHEMISTRY METHOD 03/12/2025 3:35 PM EDT [facility] VLDL Cholesterol Amanuel 25.4 mg/dL LAB CHEMISTRY METHOD 03/12/2025 3:35 PM EDT [facility] Non HDL Chol. (LDL+VLDL) 81 <145 mg/dL LAB CHEMISTRY METHOD 03/12/2025 3:35 PM EDT [facility] Chol/HDL Ratio 3.1 0.0 - 4.4 LAB CHEMISTRY METHOD 03/12/2025 3:35 PM EDT [facility] Blood Venous blood specimen / Unknown Venipuncture / Unknown 03/12/2025 11:52 AM EDT 03/12/2025 11:52 AM EDT us Juan Rogers MD LAB BLOOD ORDERABLES Final Res ult [facility] [address] [place] [address], [place] [phone] * (ABNORMAL) Comprehensive metabolic panel (03/12/2025 11:52 AM EDT) Sodium 141 133 - 145 mmol/L LAB CHEMISTRY METHOD 03/12/2025 3:35 PM [facility] Potassium 3.7 3.5 - 5.5 mmol/L LAB CHEMISTRY METHOD 03/12/2025 3:35 PM [facility] Chloride 105 96 - 110 mmol/L LAB CHEMISTRY METHOD 03/12/2025 3:35 PM [facility] CO2 28 21 - 32 mmol/L LAB CHEMISTRY METHOD 03/12/2025 3:35 PM [facility] Anion Gap 8 3 - 11 LAB CHEMISTRY METHOD 03/12/2025 3:35 PM [facility] Glucose 106(H) 70 - 100 mg/dL LAB CHEMISTRY METHOD 03/12/2025 3:35 PM [facility] BUN 10 5 - 25 mg/dL LAB CHEMISTRY METHOD 03/12/2025 3:35 PM [facility] Creatinine 1.12 0.70 - 1.30 mg/dL LAB CHEMISTRY METHOD 03/12/2025 3:35 PM [facility] eGFR 76 >=60 mL/min/1. 73m2 LAB CHEMISTRY METHOD 03/12/2025 3:35 PM [facility] Comment:Calculation based on the Chronic Kidney Disease Epidemiology Collaboration (CKD-EPI) equation refit without adjustment for race. BUN/Creatinine Ratio 8.9 LAB CHEMISTRY METHOD 03/12/2025 3:35 PM [facility] Calcium 9.0 8.5 - 10.5 mg/dL LAB CHEMISTRY METHOD 03/12/2025 3:35 PM [facility] AST (SGOT) 21 10 - 42 unit/L LAB CHEMISTRY METHOD 03/12/2025 3:35 PM [facility] ALT (SGPT) 33 10 - 60 unit/L LAB CHEMISTRY METHOD 03/12/2025 3:35 PM [facility] Alkaline Phosphatase 107 42 - 121 unit/L LAB CHEMISTRY METHOD 03/12/2025 3:35 PM EDT [facility] Total Protein 7.2 6.0 - 8.0 g/dL LAB CHEMISTRY METHOD 03/12/2025 3:35 PM EDT [facility] Albumin 3.9 3.2 - 5.0 g/dL LAB CHEMISTRY METHOD 03/12/2025 3:35 PM EDT [facility] Total Bilirubin 0.5 0.0 - 1.4 mg/dL LAB CHEMISTRY METHOD 03/12/2025 3:35 PM EDT [facility] Blood Venous blood specimen / Unknown Venipuncture / Unknown 03/12/2025 11:52 AM EDT 03/12/2025 11:52 AM EDT us Juan Rogers MD LAB BLOOD ORDERABLES Final Res ult Performing Organization Address City/[facility]/ZIP Co de Phone Number [facility] [address] [place] [address], * Microalbumin creatinine urine ratio (01/16/2025 3:24 PM EDT) Creatinine, Urine 256.0 mg/dL LAB CHEMISTRY METHOD 01/16/2025 9:03 PM EDT [facility] Microalb, Ur 18.1 0.0 - 29.0 mg/L LAB CHEMISTRY METHOD 01/16/2025 9:03 PM EDT [facility] Microalb/Creat Ratio 7 <30 mg/g creat LAB CHEMISTRY METHOD 01/16/2025 9:03 PM EDT [facility] Urine Urine specimen obtained by clean catch procedure / Unknown Non-blood Collection / Unknown 01/16/2025 3:24 PM EDT 01/16/2025 3:24 PM EDT us Juan Rogers MD LAB URINE ORDERABLES Final Res ult [facility] [address] [place] [address], [place] [phone] * (ABNORMAL) Hemoglobin A1c (01/16/2025 2:27 PM EDT) [facility] Hemoglobin A1C 6.5(H) <6.5 % LAB CHEMISTRY METHOD 01/16/2025 9:26 PM EDT [facility] Mean Bld Glu Estim. 140 mg/dL LAB CHEMISTRY METHOD 01/16/2025 9:26 PM EDT [facility] Blood Venous blood specimen / Unknown Venipuncture / Unknown 01/16/2025 2:27 PM EDT 01/16/2025 2:27 PM EDT Result [facility] Juan Rogers MD LAB BLOOD ORDERABLES Final Res ult [facility] [address] [place] [address], [place] [phone] * External Diabetic Retina Eye Exam Report (01/12/2025) Anatomical Region Laterality Modality Ultrasound Provider Torri Onbase IM US PROCEDURES Final Result * HIV Screening (03/08/2024) [facility] HIV Screening Abstracted Historical Provider HEALTH MAINTENANCE Final Result * Hepatitis C Screening (03/08/2024) [facility] Hepatitis C Screening Abstracted Historical Provider HEALTH MAINTENANCE Final Result * Diabetes Foot Exam (03/08/2024) [facility] Diabetes: Annual Foot Exam Abstracted Historical Provider HEALTH MAINTENANCE Final Result * Colonoscopy (12/20/2017) [facility] Colonoscopy Abstracted, No interpretation Anatomical Region Laterality Modality Other Historical Jethro FANG HEALTH MAINTENANCE Final Result from Last 3 Months or Most Recently Relevant to Health Maintenance Insurance MEDICAID - [place] [employer] MEDICARE Care Teams Knife Cutter Relationship Specialty Start Date End Date Juan Rogers MD [address] [place] [phone] PCP - General Internal Medicine 09/12/24
--- OUTSIDE RECORDS SUMMARY | 2025-08-29 19:26 | XMS_ITS | Encounter Summary ---
[facility] Organization [facility] [place] [address] Care Team Providers Care Research Chemical Engineer Name Role Phone Juan Rogers MD Primary Care Provider [phone] Reason for Visit * Reason Onset Date Comments MRI 08/03/2025 Encounter Details Date Type Department Care Team (Late st Contact Info) Description 08/03/2025 Telephone Endocrinology - [address] [phone] Oliva Gray MD [address] [place] [phone] Social History Tobacco Use Types Packs/Day Years [...] as of this encounter Progress Notes * Jackeline Espitia - 08/03/2025 1:25 PM EDT Endocrine Call Primary endocrine provider: Dr. Oliva Gray MD Is the endocrine provider in the office toady?: yes Who is calling? The patient. If not the patient or parent/guardian please check for authorization to share/verbal release. Why is the person calling? Pt is calling to let Dr Marina know he was unable to do the MRI due to hisclaustrophobia. He states even with medication he wasn't able to do it. He would like to know what are his next options?Other question/concern: . Please forward to endocrine pool (p [phone]). documented in this encounter Plan of Treatment Upcoming Encounters Date Type Department Care Team (Late st Contact Info) Description 09/27/2025 2:15 PM EST Office Visit Orthopedic Surgery - [place] [address] [phone] Zi Tadeo, [place] [address] [address] documented as of this encounter Visit Diagnoses Not on filedocumented in this encounter Care Teams Research Chemical Engineer Relationship Specialty Start Date End Date Juan Rogers MD [address] [place] [id number] PCP - General Internal Medicine 09/12/24 documented as of this encounter
--- OUTSIDE RECORDS SUMMARY | 2025-08-29 19:26 | XMS_ITS | Encounter Summary ---
Author Organization [facility] [place] [address] Care Team Providers Care Algologist Name Role Phone Juan Rogers MD Primary Care Provider [phone] Encounter Details Date Type Department Care Team (Late Contact Info) Description 08/28/2025 Results Follow-Up Endocrinology - [address] [phone] Oliva Gray MD [address] [place] [phone] Social History Tobacco Use Types Packs/Day Years [...] PM EST Office Visit Orthopedic Surgery - [place] [address] [phone] Zi Tadeo, [place] [address] [phone] documented as of this encounter Visit Diagnoses Not on filedocumented in this encounter Care Teams Algologist Relationship Specialty Start Date End Date Juan Rogers MD [address] [place] [id number] PCP - General Internal Medicine 09/12/24 documented as of this encounter
--- OUTSIDE RECORDS SUMMARY | 2025-08-29 19:26 | XMS_ITS | Encounter Summary ---
Author Organization [facility] [place] [address] Care Team Providers Care Asic Verification Engineer Name Role Phone Juan Rogers MD Primary Care Provider [phone] Encounter Details Date Type Department Care Team (Late Contact Info) Description 08/06/2025 Results Follow-Up Internal Medicine - [address] [phone] Juan Rogers MD [address] [place] [phone] Social History Tobacco Use Types Packs/Day Years [...] PM EST Office Visit Orthopedic Surgery - [place] [address] [phone] Zi Tadeo, [place] [address] [phone] documented as of this encounter Visit Diagnoses Not on filedocumented in this encounter Care Teams Asic Verification Engineer Relationship Specialty Start Date End Date Juan Rogers MD [address] [place] [phone] PCP - General Internal Medicine 09/12/24 documented as of this encounter
--- OUTSIDE RECORDS SUMMARY | 2025-08-29 19:26 | XMS_ITS | Patient Health Record ---
Author Organization [facility] Address [address] [place] [address] Care Team Providers Care Ironer Hand Name Role Phone OscarJuan vallejo Primary Care Provider Unavailabl e Black, Janay Unavailable [phone] Allergies Allergen (clinical drug ingredient) Drug/Non Drug Allergy documented on EMR Reaction Allergy Type Onset Date Status ibuprofen Advil hives Drug Allergy Active Aleve hives Drug Allergy Active Motrin hives Drug Allergy Active Penicillin hives Drug Allergy Active Reason For Referral No Information Medications Medication SIG (Take, Route, Frequency, Duration) Notes Start Date End Date Status hydrALAZINE HCl 100 MG 1 tablet with jessika d Orally Twice a day Active Losartan Potassium 50 MG 1 tablet Orally Once a day Active amLODIPine Besylate 10 MG [...] Never (0 point) Points 1 Interpretation Negative Plan Of Treatment No Information Insurance Providers Payer Name Payer Address Payer Phone Subscriber Number Group Number Insured Name Patient Relationship to Insured Coverage Start Date Coverage End Date AARP Medicare Complete [address] [address] [place] [address] [phone] [id number] Wallace Britt Self - patient is the insured [employer] Medicare [id number] [address] [address] [place] [id number] Wallace Britt Self - patient is the insured Medical (General) History Medical History History ICD Code Anxiety Back,Hip,and Knee pain Depression Diabetic Heart disease High Blood Pressure Numbness
== END 2025-08-29 14:01 | disposition home or self-care (01) ==
LOC: HO.HSM 13:39
PROVIDERS: PCP Internal Medicine; Referring Provider Internal Medicine; Visit Provider Registered Nurse
DX: M54.16 Radiculopathy, lumbar region (principal); M50.90 Cervical disc disorder, unspecified, unspecified cervical region
CPT/HCPCS: 99214

== ENCOUNTER → 2025-08-29 14:09 | Outpatient (BNV) | payer OTHER, MEDICARE, SELFPAY | PROVIDERS: PCP Internal Medicine; Referring Provider Internal Medicine; Visit Provider Radiology Diagnostic Radiology | DX: M47.812 Spondylosis without myelopathy or radiculopathy, cervical region (principal) | CPT/HCPCS: 72050 ==